=== PATIENT | male | born 1935 | race Caucasian/White ===

== ENCOUNTER 2018-10-15 10:44 | Emergency (ER) | payer MEDICARE ==
--- OUTSIDE RECORDS SUMMARY | 2018-10-15 10:53 | XMS REPORT | Continuity of Care Document ---
:1935 External Reference #:[id number] Author Name Jose Roberto Richey DO Address [address] [place] [address] Care Team Providers Name Role Phone Leonila Siu NP Care Team Information Wearing Apparel Presser Unavailable Jaime Pillai MD Primary Care Physician Unavailable Payers Date Identification Numbers Payment Provider Subscriber Policy Number: [id number] Medicare Ten Mccullough PayID: [id number] [facility] [address] [place] [address] Policy Number: [id number] [facility] Health Care Option Ten Mccullough PayID: [id number] Claims, [address] [place] [address] Advance Directives Description No Information Available Problems Date Description Provider Status Onset: 11/10/1996 Atrial fibrillation Levi Nunez MD Active Note: on warfarin (timed since move to [place]) and never any thrombo embolic events; Onset: 11/10/2001 Essential hypertension Levi Nunez MD Active Onset: 11/16/1996 Anticoagulants Care Home (Current) Use Levi Nunez MD Active Encounter Note: had subdural hematoma with INR of 3.5 (and strained to unhook heavy RV ) and off warfarin for 3 weeks after his craniotomy here in [place] ([employer]) Onset: 11/04/2012 Diverticular disease of colon Levi Nunez MD Active Onset: 11/08/2003 Malignant tumor of urinary bladder Levi Nunez MD Active Note: cystoscopic treatment 2003 and 2011 Onset: 01/23/2007 Subdural hemorrhage Levi Nunez MD Active Note: Pt states he had picked up the tongue of an RV - had craniotomy; cannot recall how long off warfarin Onset: 09/21/2018 Long-term current use of anticoagulant Jose Roberto Richey DO Active Onset: 09/21/2018 Chronic atrial fibrillation Jose Roberto Richey DO Active Family History Description No Information Available Social History Type Date Description Comments Sex Unknown Tobacco Use Start: Unknown End: Unknown Patient is a former smoker Smoking Status Reviewed: 09/21/18 Patient is a former smoker Allergies, Adverse Reactions, Alerts Date Description Reaction Status Severity Comments 11/04/2012 Diltiazem Active Medications Medication Date Status Form Strength Qnty SIG Indications Ordering Provider Metoprolol 11/06/ Active Tablets 25mg 60tabs 1 po bid Levi Barraza Tartrate 2009 MD Enrique Warfarin 11/14/ Active Tablets 2mg alternates Levi Barraza Sodium 2004 2 mg's with Enrique 1 mg's qod Pravastatin / Active Tablets 20mg Unknown Sodium 0000 Verapamil HCL / Active Tablets ER 120mg Unknown ER 0000 Myrbetriq / Active Tablets ER 50mg Take 1 Unknown 0000 24HR Tablet By Mouth Every Day Mucinex DM / Active Tablets ER 30-600mg Unknown 0000 12HR Preservision / Active Capsules Unknown Areds 0000 Ipratropium / Active Solution 0.06% Unknown [place] 0000 Tylenol 8 Hour / Active Tablets ER 650mg 1 by mouth Unknown 0000 q4 hours as needed for pain Glucosamine / Active Capsules 1500Com Unknown Chondroitin 0000 1500 Complex Metamucil / Active Powder 28.3% Unknown 0000 Vitamin D3 / Active Capsules 1000Unit 2000 iu per Unknown 0000 day Aspirin Ec Low / Active Tablets DR 81mg Unknown Dose 0000 Ferrousul / Active Tablets 325(65Fe) 1 by mouth Unknown 0000 mg 3 times a week Colyte-Flavor 11/04/ Hx Solution 240gm 1units As directed V58.61 Levi Barraza [employer] 2013 - Rec Enrique 2012 Immunizations Description No Information Available Vital Signs Date Vital Result Comment 09/21/2018 11:32am Height 71.5 inches 5'11.50" Weight 209.00 lb BP Systolic 132 mmHg BP Diastolic 81 mmHg Heart Rate 61 /min BMI (Body Mass Index) 28.7 kg/m2 11/04/2012 1:41pm Height 71.5 inches 5'11.50" Weight 210.00 lb BP Systolic 114 mmHg BP Diastolic 64 mmHg Heart Rate 76 /min BMI (Body Mass Index) 28.9 kg/m2 Results Test Date Facility Test Result H/L Range Note Surgical [facility] [place] DATE: Pathology 3 12/03/ <SEE NOTE> Laboratory test [facility] Inr 3.0 finding 3 [address] [place] [address] [phone] CBC W/Auto [facility] White 8.7 3/UL 4.8- 10.8 Differential(!) 3 [address] [facility] [place] [address] Count Ser [phone] Auto CNT RBC Red Blood Count 4.51 X106/UL 4.20-6.20 Hemoglobin Blood 14.5 g/dL 12.0-18.0 Hematocrit 45.2 % 35-52 MCV (Corpuscular Volume) 100.2 FL High 79-97 MCH (Corpuscular Hemoglobin) 32.2 pg High 27-31 MCHC (Corpuscular Hemog Conc) 32.2 g/dL 32.0-36.0 RDW 14.0 % 10.5-15.0 Platelet Count Blood Auto CNT 162 X103/UL 150-450 MPV 8.1 FL 7.4-10.4 Lymph% 16.8 % Low 20.0-45.0 Cooke% 7.9 % 1.0-9.0 Neutrophil % 75.3 % 38.0-83.0 Absolute Lymphocytes 1.5 X103/UL 1.0-4.8 Absolute Monocytes 0.7 X103/UL 0.0-0.8 Absolute Neutrophils 6.6 X103/UL 1.5-7.7 Procedures Date Code Description Status 12/01/2012 21282 Colonoscopy W/ Snare RM Of Polyp/Tumor/Lesion Completed Encounters Type Date Location Provider Dx Diagnosis Office Visit 11/04/2012 Gastroenterology Levi Barraza V58.61 Anticoagulants Long 1:[facility] MD Term (Current) Use Encounter 427.31 Atrial Fibrillation 401.9 Hypertension Unspec 562.10 Diverticulosis Colon W/O Hemorrhage Plan of Treatment Future Appointment(s):10/22/2018 8:00 am - Jose Roberto Richey DO at [facility]09/21/2018 - Jose Roberto Richey, DOZ86.010 Personal history of colonic xeakscN74.9 Anemia, rhpvzlgndgdH42.2 Chronic atrial yvskhyhivooiV63.01 senior living (current) use of anticoagulants
--- NOTE | 2018-10-15 11:28 | UC ---
Knee Pain HPI - HPI Summary HPI Summary: 83 yo male presents with RIGHT knee pain. He tells me that 5 days ago he was kneeling down on a rug doing work at home. The next day developed right knee pain. Over the last 2 days the knee has become increasingly swollen, red, and warm to touch with increased pain. He is ambulatory without assistance. He has been applying an OTC bengay-like cream to his knee with no relief. Denies specific injury - History of Current Complaint Stated Complaint: KNEE INJURY Time Seen by Provider: 10/15/18 11:28 Hx Obtained From: Patient Onset/Duration: Gradual Onset Severity Initially: Moderate Severity Currently: Severe Pain Intensity: 10 Pain Scale Used: 0-10 Numeric - Allergies/Home Medications Allergies/Adverse Reactions: Allergies Allergy/AdvReac Type Severity Reaction Status Date / Time diltiazem [From Cardizem] Allergy Headache Verified 05/14/18 14:39 DUST Allergy MINOR Uncoded 11/29/16 11:57 PMH/Surg Hx/FS Hx/Imm Hx Endocrine History: Dyslipidemia Cardiovascular History: Cardiac Disease, Atrial Fibrillation, Other - Aortic valve replacement - Surgical History Surgical History: Yes Surgery Procedure, Year, and Place: PORT installed 1 1/2 years ago @ [facility]; Prostate removed 1996; colonoscopies 3X done at [facility]; Subdural hematoma 2005 @ [facility]; Heart Valve repair 2008 @ [facility]; Varicose Veins @ [place] 1960; 1969. Left Elbow bursa removed 1967 AORTIC VALVE REPLACED Jan 2015 - Family History Known Family History: Positive: Unknown - Social History Occupation: Retired Alcohol Use: Weekly Alcohol Amount: 2 PER WEEK Substance Use Type: None Smoking Status (MU): Former Smoker Amount Used/How Often: PACK A DAY Have You Smoked in the Last Year: No When Did the Patient Quit Smoking/Using Tobacco: 1974 - Immunization History Most Recent Tetanus Shot: 5 years ago Review of Systems All Other Systems Reviewed And Are Negative: Yes Constitutional: Positive: Negative Respiratory: Positive: Negative Cardiovascular: Positive: Negative Neurovascular: Positive: Negative Musculoskeletal: Positive: Other: - Right knee pain Neurological: Positive: Negative Psychological: Positive: Negative Physical Exam - Summary Physical Exam Summary: GENERAL: NAD. WDWN. No pain distress. SKIN: No rashes, sores, lesions, or open wounds. CHEST: No accessory muscle use. Breathing comfortably and in no distress. CV: . Pulses intact popliteal, PT, and DP. Cap refill <2seconds MSK: RIGHT KNEE: TTP about anterior aspect with moderate edema and erythema at site. Mildly warm to touch. Flexion increases pain and unable to flex >90deg due to pain and edema. NEURO: Alert. Sensations intact and symmetric B/L LEs PSYCH: Age appropriate behavior. Triage Information Reviewed: Yes Vital Signs: Vital Signs: Temp Pulse Resp BP Pulse Ox 97.7 F 67 16 132/67 98 10/15/18 11:26 10/15/18 11:26 10/15/18 11:26 10/15/18 11:10/15/18 11:26 Vital Signs Reviewed: Yes Knee Pain Course/Dx - Course Course Of Treatment: XR: IMPRESSION: 1. SOFT TISSUE SWELLING ANTERIOR TO THE PATELLA AND PATELLAR TENDON. 2. CHONDROCALCINOSIS AND MILD TO MODERATE OSTEOARTHRITIC CHANGE. Suspect bursitis. Given the progressing edema, erythema, and pain with decreased ROM - there is a concern this resembles early septic bursitis. Given his significant comorbidities and PMHx, I am hesitant to try him with outpatient anbx without proper follow up; therefore I called Orthopedics and Dr. Lu will see pt an hour from now for evaluation. Discussed this with pt and he is agreeable to this. - Differential Dx/Diagnosis Provider Diagnosis: Bursitis of right knee Discharge - Sign-Out/Discharge Documenting (check all that apply): Patient Departure All imaging exams completed and their final reports reviewed: Yes - Discharge Plan Condition: Stable Disposition: HOME Referrals: Jaime Pillai MD [Primary Care Provider] - Adan Lu MD [Medical Doctor] - 10/15/18 1:45 pm Additional Instructions: If you develop a fever, shortness of breath, chest pain, new or worsening symptoms - please call your PCP or go to the ED. Please go to Dr. Lu's office at 1:45pm today - they will further evaluate your knee. - Billing Disposition and Condition Condition: STABLE Disposition: Home
[2018-10-15 11:30] VITALS: BP 132/67
== END 2018-10-15 13:03 | disposition home or self-care (01) ==
LOC: UCEAST 10:44
DX: M70.51 Other bursitis of knee, right knee (principal); M11.261 Other chondrocalcinosis, right knee; M17.11 Unilateral primary osteoarthritis, right knee; E78.5 Hyperlipidemia, unspecified; I48.91 Unspecified atrial fibrillation; Z95.2 Presence of prosthetic heart valve; Z88.8 Allergy status to other drugs, medicaments and biological substances; Z87.891 Personal history of nicotine dependence
CPT/HCPCS: 99211; G0463

== ENCOUNTER 2018-10-20 11:57 | Inpatient (IN) | payer MEDICARE ==
[2018-10-20] MEDS ORDERED: Acetaminophen TAB* 325 MG PO PRN (15:06)
[2018-10-20] MEDS ORDERED: Piperacillin/Tazobac ADVAN(*) 3.375 GM in NS 0.9% 100 ML* 100 ML IVPB ONE (15:12)
[2018-10-20] MEDS ORDERED: NS 0.9% 1000 ML** 1,000 ML IV SCH (15:15)
[2018-10-20] MEDS ORDERED: Zosyn per Pharmacy* NOTE FOLLOW UP SCH (16:00)
[2018-10-20 16:03] LABS: INR 4.13 (0.82-1.09)
[2018-10-20 16:04] LABS: Albumin 4.1 g/dL (3.2-5.2); Calcium 9.6 mg/dL (8.6-10.3); Potassium 4.5 mmol/L (3.5-5.0); Total Bilirubin 0.9 mg/dL (0.2-1.0)
[2018-10-20 16:17] LABS: BUN/Creatinine Ratio 25.8 (8-20); EGFR African American 89.2 (>60); EGFR Non-African American 73.7 (>60)
[2018-10-20 16:46] LABS: Albumin/Globulin Ratio 1.2 (1-3); Globulin 3.3 g/dL (2-4); Total Protein 7.4 g/dL (6.4-8.9)
[2018-10-20 16:49] LABS: ABS Basophils 0 10^3/ul (0-0.2); ABS Eosinophils 0 10^3/ul (0-0.6); ABS Lymphocytes 0.6 10^3/ul (1.0-4.8); ABS Monocytes 0.8 10^3/ul (0-0.8); ABS Neutrophils 5.8 10^3/ul (1.5-7.7); ABS Nucleated RBC 0 10^3/ul; Eosinophil % 0.2 %; Hematocrit 35 % (36-46); Hemoglobin 11.6 g/dL (14.0-18.0); Lymphocyte % 8.2 %; Mean Corpuscular HGB Conc 33 g/dL (31-36); Mean Corpuscular Hemoglobin 33 pg (27-31); Mean Corpuscular Volume 100 fL (80-94); Mean Platelet Volume 7.6 fL (7.4-10.4); Nucleated Red Blood Cells % 0.1; Platelet Count 250 10^3/uL (150-450); Red Blood Count 3.49 10^6 /uL (4.18-5.48); Red Cell Distribution Width 14 % (10.5-15); White Blood Count 7.3 10^3/uL (3.5-10.8)
[2018-10-20] MEDS ORDERED: Warfarin TAB(*) 5 MG PO SCH (17:00)
[2018-10-20] MEDS: Acetaminophen TAB* 325 MG PO PRN (19:36)
[2018-10-20] MEDS: ZOSYN 3.375 GM Q8H per EXTENDED INFUSION IVPB SCH ×2 (19:37)
--- NOTE | 2018-10-20 19:54 | HP ---
CC: Dr. Pillai; Dr. Pacheco; Dr. Lu * HISTORY AND PHYSICAL: DATE OF ADMISSION: 10/20/18 PRIMARY CARE PROVIDER: Dr. Pillai. CHIEF COMPLAINT: Sent from Dr. Lu's office for admission due to prepatellar bursitis. HISTORY OF PRESENT ILLNESS: Mr. Mccullough is an 83-year-old male, who was diagnosed with right knee cellulitis by Dr. Lu a week ago. He was placed on Bactrim and since then he has been doing somewhat alright, but noted that his right leg continued to be painful. He has had problems with walking and when he was seen by Dr. Lu for a followup today, she did not see a drastic change or improvement while on antibiotics. Due to that, she directed the patient for direct admission to the hospitalist service with diagnosed prepatellar bursitis. The patient denies any fevers. He stated that he had been ambulating without any support but it had been more difficult recently. In addition to the above mentioned, the patient stated that 3 weeks ago, he had a prolonged dentist visit when he had some teeth repair and local antibiotic treatment on the right bottom teeth and molars. During that time, he developed hematoma on his buttocks and bilateral posterior thigh that was likely in conjunction with the patient being on Coumadin and prolonged immobility. He stated that his hematoma had been improving, but he developed right knee cellulitis approximately 1 week prior to current admission. PAST MEDICAL HISTORY: Includes: 1. Prostate cancer, status post chemotherapy. The patient has a right subclavian PowerPort inserted. 2. History of chronic atrial fibrillation, on anticoagulation with Coumadin. 3. History of DVT in 2012 after his prostatectomy for prostate cancer. 4. History of dyslipidemia. 5. History of thoracic neuritis. 6. History of lumbar stenosis. 7. Restless legs syndrome. 8. Hypertension. 9. History of severe mitral regurgitation, status post mitral valve repair and annuloplasty performed as well as maze procedure performed in 2009. 10. History of aortic valve replacement with bioprosthetic valve in 2014. 11. History of macular degeneration. 12. Subdural hematoma in 2006, status post drainage. MEDICATIONS: At home, include: 1. Mag-Ox 1 tablet daily 400 mg. 2. PreserVision soft gels 1 tablet b.i.d. 3. Pravachol 20 mg daily. 4. Mirabegron 50 mg daily. 5. Mucinex DM 1 tablet on a p.r.n. basis. 6. Acetaminophen on a p.r.n. basis. 7. Verapamil 120 mg b.i.d. 8. Ferrous gluconate 325 mg daily. 9. Coumadin 5 mg a day. 10. Metoprolol tartrate 25 mg b.i.d. 11. Metamucil 2 packets daily. 12. Glucosamine 1500 mg b.i.d. 13. Vitamin D3 1000 units daily. 14. Aspirin 81 mg daily. ALLERGIES: DILTIAZEM. FAMILY HISTORY: Positive for father with history of pancreatitis who at the age of 80. Mother who of old age at the age of 94. SOCIAL HISTORY: The patient has a history of 25 pack-year smoking and he quit in 1974. He lives alone. There is no history of alcohol or drug use. His surrogate is his daughter, Narcisa, with phone number of [phone]. The patient is a full code. REVIEW OF SYSTEMS: Please see history of present illness. All the remaining 12 systems were reviewed with the patient and were otherwise negative. PHYSICAL EXAMINATION GENERAL: The patient is a pleasant 83-year-old male, who is in no acute distress. Alert, awake, oriented x3. VITAL SIGNS: Blood pressure of 137/73, heart rate of 69 and regular, respiratory rate 20, oxygen saturation 98% on room air, temperature 97.5. HEENT: Head: Atraumatic, normocephalic. Eyes: Pupils are equal and reactive to light and accommodation. Oropharynx clear. Mucosa moist. NECK: Supple. No JVD. No bruits bilaterally. RESPIRATORY: Clear to auscultation bilaterally. CARDIOVASCULAR: Irregular rate and rhythm. No murmur. ABDOMEN: Soft, nontender. Bowel sounds are present in all 4 quadrants. EXTREMITIES: There is +1 pitting pedal edema of the right calf and right ankle as well as right knee. There is no edema of the left leg. There is no clubbing , or cyanosis, peripheral. The knee is mildly tender to touch. The patient has reasonable range of motion and he is able to bare weight on the right knee. He has problems with flexion of more than 45% degrees. His extension is intact. NEUROLOGIC: On neuro evaluation, speech is clear. Cranial nerves II through XII grossly intact. Motor strength is 5/5 bilaterally. PSYCHIATRIC: On psychiatric evaluation, alert and oriented x3 with no evidence of anxiety or depression. SKIN: On evaluation of the skin, the patient has swollen right knee with notable prepatellar fluid collection. He has erythema that does not appear to be spreading beyond the outlined area of cellulitis that was performed within the past several days. On further evaluation of the patient's skin, the patient has resolving ecchymotic area of bilateral buttocks and hematoma of the left posterior thigh. DIAGNOSTIC STUDIES/LAB DATA: None obtained so far. ASSESSMENT AND PLAN: 1. Prepatellar bursitis. The patient is going to be placed on treatment with Zosyn. Blood cultures are going to be obtained. Due to the right leg edema, we will also obtain Dopplers to evaluate for deep venous thrombosis. 2. The patient has chronic atrial fibrillation, which currently appears to be rate controlled. I will continue his outpatient verapamil. He is also on Coumadin and daily INRs are going to be checked. 3. The patient has history of hypertension and he is on verapamil as well as metoprolol. 4. For DVT prophylaxis, the patient is anticoagulated with Coumadin and his INR going to be checked to make sure this is therapeutic. 5. Please also note that Dr. Lu will follow from orthopedic service for prepatellar bursitis as mentioned above. 6. The patient's code status is full and his surrogate is his daughter, Narcisa. TIME SPENT: Approximately 65 minutes was spent on the admission of this patient , more than half the time was spent [id number] with the patient during the interview and physical exam. [id number]/[facility] #: [id number] NIEVES
[2018-10-20] MEDS: Docusate CAP* 100 MG PO PRN (20:05)
[2018-10-20] MEDS: Metoprolol Tartrate TAB* 25 MG PO SCH (20:05)
[2018-10-20] MEDS: Verapamil TAB* 120 MG PO SCH (20:05)
[2018-10-20] MEDS: PTO:Multivitamins/Mins (NF) AREDS2 1 CAP CAP PO SCH (20:46)
[2018-10-21] MEDS: Acetaminophen TAB* 325 MG PO PRN ×3 (04:02→22:29)
[2018-10-21] MEDS: ZOSYN 3.375 GM Q8H per EXTENDED INFUSION IVPB SCH ×6 (04:12→21:16)
[2018-10-21 04:23] LABS: ABS Basophils 0 10^3/ul (0-0.2); ABS Eosinophils 0 10^3/ul (0-0.6); ABS Lymphocytes 0.6 10^3/ul (1.0-4.8); ABS Monocytes 0.7 10^3/ul (0-0.8); ABS Neutrophils 4.2 10^3/ul (1.5-7.7); ABS Nucleated RBC 0 10^3/ul; Eosinophil % 0.7 %; Hematocrit 32 % (36-46); Lymphocyte % 10.1 %; Mean Corpuscular HGB Conc 34 g/dL (31-36); Mean Corpuscular Hemoglobin 34 pg (27-31); Mean Corpuscular Volume 101 fL (80-94); Mean Platelet Volume 7.2 fL (7.4-10.4); Nucleated Red Blood Cells % 0; Platelet Count 217 10^3/uL (150-450); Red Blood Count 3.21 10^6 /uL (4.18-5.48); Red Cell Distribution Width 14 % (10.5-15); White Blood Count 5.6 10^3/uL (3.5-10.8)
[2018-10-21 04:26] LABS: INR 4.55 (0.82-1.09)
[2018-10-21 04:38] LABS: BUN/Creatinine Ratio 26.1 (8-20); EGFR African American 94.8 (>60); EGFR Non-African American 78.4 (>60); Potassium 4.7 mmol/L (3.5-5.0)
[2018-10-21] MEDS ORDERED: NS 0.9% 1000 ML** 1,000 ML IV SCH (07:45)
--- NOTE | 2018-10-21 09:56 | PN ---
Progress Note - Progress Note Date of Service: 10/21/18 Note: Pt seen and examined. Briefly, pt was initially seen in my office last week with infected prepatellar bursitis. We treated conservatively and he returned to clinic yesterday with no change in bursitis but increasing cellulitis. Spoke with medicine team who agreed to admit patient for IV abx. Today, patient feels the same in terms of pain. He is able the mobilize well. Denies SOB, CP, fevers or chills. Temp Pulse Resp BP Pulse Ox 97.7 F 77 18 133/78 97 10/21/18 07:43 10/21/18 07:43 10/21/18 08:00 10/21/18 07:43 10/21/18 07:43 NAD. AAOx3. resting comfortably in chair. RLE: skin intact, erythema is decreasing somewhat tender although improved, not as red as yesterday and decreasing from markings yesterday. able to flex/ext ankle. ROM of knee 3-95 degrees. calf soft and nontender. SILT grossly distally. brisk cap refill. Laboratory Results - last 24 hr 10/20/18 10/20/18 10/20/18 15:38 15:38 15:38 WBC 7.3 RBC 3.49 L Hgb 11.6 L Hct 35 L MCV 100 H MCH 33 H MCHC 33 RDW 14 Plt Count 250 MPV 7.6 Neut % (Auto) 80.0 Lymph % (Auto) 8.2 Mora % (Auto) 11.3 Eos % (Auto) 0.2 Baso % (Auto) 0.3 Absolute Neuts (auto) 5.8 Absolute Lymphs (auto) 0.6 L Absolute Monos (auto) 0.8 Absolute Eos (auto) 0 Absolute Basos (auto) 0 Absolute Nucleated RBC 0 Nucleated RBC % 0.1 INR (Anticoag Therapy) 4.13 H Sodium 131 L Potassium 4.5 Chloride 100 L Carbon Dioxide 24 Anion Gap 7 BUN 25 H Creatinine 0.97 Est GFR ( Amer) 89.2 Est GFR (Non-Af Amer) 73.7 BUN/Creatinine Ratio 25.8 H Glucose 108 H Calcium 9.6 Total Bilirubin 0.90 AST 32 ALT 29 Alkaline Phosphatase 162 H Total Protein 7.4 Albumin 4.1 Globulin 3.3 Albumin/Globulin Ratio 1.2 10/21/18 10/21/18 10/21/18 04:00 04:00 04:00 WBC 5.6 RBC 3.21 L Hgb 11.0 L Hct 32 L MCV 101 H MCH 34 H MCHC 34 RDW 14 Plt Count 217 MPV 7.2 L Neut % (Auto) 76.3 Lymph % (Auto) 10.1 Mora % (Auto) 12.3 Eos % (Auto) 0.7 Baso % (Auto) 0.6 Absolute Neuts (auto) 4.2 Absolute Lymphs (auto) 0.6 L Absolute Monos (auto) 0.7 Absolute Eos (auto) 0 Absolute Basos (auto) 0 Absolute Nucleated RBC 0 Nucleated RBC % 0 INR (Anticoag Therapy) 4.55 H Sodium 133 L Potassium 4.7 Chloride 104 Carbon Dioxide 25 Anion Gap 4 BUN 24 Creatinine 0.92 Est GFR ( Amer) 94.8 Est GFR (Non-Af Amer) 78.4 BUN/Creatinine Ratio 26.1 H Glucose 95 Calcium 9.0 Total Bilirubin AST ALT Alkaline Phosphatase Total Protein Albumin Globulin Albumin/Globulin Ratio A/P 83 yo M with infected prepatellar bursitis and surrounding cellulitis diet as tolerated cont abx WBAT and ROM as tolerated. no plans for surgery. will follow along
[2018-10-21] MEDS: Magnesium Oxide TAB* 400 MG PO SCH (10:47)
[2018-10-21] MEDS: Cholecalciferol TAB* 1000 UNITS PO SCH (10:47)
[2018-10-21] MEDS: Aspirin EC TAB* 81 MG TAB.EC PO SCH (10:47)
[2018-10-21] MEDS: Metoprolol Tartrate TAB* 25 MG PO SCH ×2 (10:49→21:16)
[2018-10-21] MEDS: Verapamil TAB* 120 MG PO SCH ×2 (10:49→21:15)
[2018-10-21] MEDS: PTO:Multivitamins/Mins (NF) AREDS2 1 CAP CAP PO SCH ×2 (10:49→21:17)
[2018-10-21] MEDS: Psyllium PAK PO SCH (10:50)
[2018-10-21] MEDS: Ferrous Gluconate TAB* 324 MG TAB PO SCH (10:55)
--- NOTE | 2018-10-21 12:57 | PN ---
Subjective Date of Service: 10/21/18 Interval History: pt's knee is less swollen and painful Objective Active Medications: Acetaminophen (Tylenol Tab*) 650 mg PO Q8H PRN PRN Reason: PAIN Last Admin: 10/21/18 04:02 Dose: 650 mg Aspirin (Aspirin Ec Tab*) 81 mg PO DAILY COUNTS INCLUDE 234 BEDS AT THE [facility] Last Admin: 10/21/18 10:47 Dose: 81 mg Cholecalciferol (Vitamin D Tab*) 1,000 units PO DAILY COUNTS INCLUDE 234 BEDS AT THE [facility] Last Admin: 10/21/18 10:47 Dose: 1,000 units Docusate Sodium (Colace Cap*) 100 mg PO BID PRN PRN Reason: CONSTIPATION Last Admin: 10/20/18 20:05 Dose: 100 mg Ferrous Gluconate (Fergon Tab*) 324 mg PO DAILY COUNTS INCLUDE 234 BEDS AT THE [facility] Last Admin: 10/21/18 10:55 Dose: 324 mg Heparin Sodium (Porcine) (Heparin Flush Port (Ivad)) 5 ml FLUSH DAILY COUNTS INCLUDE 234 BEDS AT THE [facility]; Protocol Last Admin: 10/21/18 10:55 Dose: 5 ml Piperacillin Sod/Tazobactam (Sod 3.375 gm/ Sodium Chloride) 100 mls @ 25 mls/ hr IVPB Q8H COUNTS INCLUDE 234 BEDS AT THE [facility] Last Admin: 10/21/18 12:10 Dose: 25 mls/hr Sodium Chloride (Ns 0.9% 1000 Ml) 1,000 mls @ 75 mls/hr IV PER RATE COUNTS INCLUDE 234 BEDS AT THE [facility] Stop: 10/21/18 21:04 Last Admin: 10/21/18 11:34 Dose: 75 mls/hr Magnesium Oxide (Magox 400 Tab*) 400 mg PO DAILY COUNTS INCLUDE 234 BEDS AT THE [facility] Last Admin: 10/21/18 10:47 Dose: 400 mg Metoprolol Tartrate (Lopressor Tab*) 25 mg PO BID COUNTS INCLUDE 234 BEDS AT THE [facility] Last Admin: 10/21/18 10:49 Dose: 25 mg Multivitamins/Minerals (Preservision Areds 2) 1 cap PO BID COUNTS INCLUDE 234 BEDS AT THE [facility] Last Admin: 10/21/18 10:49 Dose: 1 cap Pharmacy Consult (Zosyn Per Pharmacy*) 1 note FOLLOW UP .ZOSYN PER PHARMACY COUNTS INCLUDE 234 BEDS AT THE [facility] Psyllium Hydrophilic Mucilloid (Metamucil Enmnauel*) 2 pkt PO DAILY COUNTS INCLUDE 234 BEDS AT THE [facility] Last Admin: 10/21/18 10:50 Dose: 2 pkt Verapamil HCl (Calan Tab*) 120 mg PO BID COUNTS INCLUDE 234 BEDS AT THE [facility] Last Admin: 10/21/18 10:49 Dose: 120 mg Vital Signs - 8 hr 10/21/18 10/21/18 10/21/18 07:43 08:00 11:20 Temperature 97.7 F 97.3 F Pulse Rate 77 80 Respiratory 18 16 18 Rate Blood Pressure 133/78 148/82 (mmHg) O2 Sat by Pulse 97 100 Oximetry Oxygen Devices in Use Now: None Appearance: 83 yo M in nAD, AAOx3 Eyes: No Scleral Icterus, PERRLA Ears/Nose/Mouth/Throat: NL Teeth, Lips, Gums, Mucous Membranes Moist Neck: NL Appearance and Movements; NL JVP, Trachea Midline Respiratory: Symmetrical Chest Expansion and Respiratory Effort, Clear to Auscultation Cardiovascular: - - irregular Abdominal: NL Sounds; No Tenderness; No Distention, No Hepatosplenomegaly Lymphatic: No Cervical Adenopathy Extremities: No Clubbing, Cyanosis, - - R calf, leg edema with knee effusioion Skin: No Nodules or Sclerosis, - - R knee cellulitis appears to be improving Neurological: Alert and Oriented x 3, - - limit of flexion of R knee to 50 degrees Result Diagrams: 10/21/18 04:00 10/21/18 04:00 Assess/Plan/Problems-Billing Assessment: 83 yo M with h/o MVR, aortic replacement, HTN, chronic A. fib with prepatellar bursitis - Patient Problems (1) Prepatellar bursitis Comment: cont Zosyn, asked for PT improving slowly (2) Atrial fibrillation Comment: chronic , controlled on Verapamil (3) Hypertension Comment: controlled (4) DVT (deep venous thrombosis) Comment: chronic, partial of R femoral vein cont Coumadin,-held for high INR today Status and Disposition: inpatient
[2018-10-21] MEDS ORDERED: Polyethylene Glycol 3350* 17 GM PACKET PO PRN (21:43)
[2018-10-22] MEDS: ZOSYN 3.375 GM Q8H per EXTENDED INFUSION IVPB SCH ×6 (04:13→21:14)
[2018-10-22 04:47] LABS: INR 3.81 (0.82-1.09)
[2018-10-22] MEDS: Magnesium Oxide TAB* 400 MG PO SCH (10:17)
[2018-10-22] MEDS: Metoprolol Tartrate TAB* 25 MG PO SCH ×2 (10:17→21:14)
[2018-10-22] MEDS: Ferrous Gluconate TAB* 324 MG TAB PO SCH (10:17)
[2018-10-22] MEDS: Aspirin EC TAB* 81 MG TAB.EC PO SCH (10:17)
[2018-10-22] MEDS: Psyllium PAK PO SCH (10:17)
[2018-10-22] MEDS: Cholecalciferol TAB* 1000 UNITS PO SCH (10:17)
[2018-10-22] MEDS: Verapamil TAB* 120 MG PO SCH ×2 (10:17→21:14)
[2018-10-22] MEDS: PTO:Multivitamins/Mins (NF) AREDS2 1 CAP CAP PO SCH ×3 (10:26→21:14)
[2018-10-22] MEDS: Acetaminophen TAB* 325 MG PO PRN ×2 (13:10→23:10)
--- NOTE | 2018-10-22 14:00 | PN ---
Subjective Date of Service: 10/22/18 Interval History: Pt feels well, ambulation without support. R knee still swollen and had a small amount of drainage on the bed sheets last night Objective Active Medications: Acetaminophen (Tylenol Tab*) 650 mg PO Q8H PRN PRN Reason: PAIN Last Admin: 10/22/18 13:10 Dose: 650 mg Aspirin (Aspirin Ec Tab*) 81 mg PO DAILY [facility] Last Admin: 10/22/18 10:17 Dose: 81 mg Cholecalciferol (Vitamin D Tab*) 1,000 units PO DAILY [facility] Last Admin: 10/22/18 10:17 Dose: 1,000 units Docusate Sodium (Colace Cap*) 100 mg PO BID PRN PRN Reason: CONSTIPATION Last Admin: 10/20/18 20:05 Dose: 100 mg Ferrous Gluconate (Fergon Tab*) 324 mg PO DAILY [facility] Last Admin: 10/22/18 10:17 Dose: 324 mg Heparin Sodium (Porcine) (Heparin Flush Port (Ivad)) 5 ml FLUSH DAILY [facility]; Protocol Last Admin: 10/22/18 09:58 Dose: 5 ml Piperacillin Sod/Tazobactam (Sod 3.375 gm/ Sodium Chloride) 100 mls @ 25 mls/ hr IVPB Q8H [facility] Last Admin: 10/22/18 13:01 Dose: 25 mls/hr Magnesium Oxide (Magox 400 Tab*) 400 mg PO DAILY [facility] Last Admin: 10/22/18 10:17 Dose: 400 mg Metoprolol Tartrate (Lopressor Tab*) 25 mg PO BID [facility] Last Admin: 10/22/18 10:17 Dose: 25 mg Multivitamins/Minerals (Preservision Areds 2) 1 cap PO BID [facility] Last Admin: 10/22/18 10:57 Dose: 1 cap Pharmacy Consult (Zosyn Per Pharmacy*) 1 note FOLLOW UP .ZOSYN PER PHARMACY [facility] Polyethylene Glycol/Electrolytes (Miralax*) 17 gm PO DAILY PRN PRN Reason: CONSTIPATION Psyllium Hydrophilic Mucilloid (Metamucil Enmanuel*) 2 pkt PO DAILY [facility] Last Admin: 10/22/18 10:17 Dose: 2 pkt Verapamil HCl (Calan Tab*) 120 mg PO BID [facility] Last Admin: 10/22/18 10:17 Dose: 120 mg Vital Signs - 8 hr 10/22/18 10/22/18 10/22/18 07:29 08:00 11:13 Temperature 98.3 F 98.2 F Pulse Rate 85 67 Respiratory 18 18 Rate Blood Pressure 162/81 112/60 (mmHg) O2 Sat by Pulse 97 99 Oximetry Oxygen Devices in Use Now: None Appearance: 83 yo M in nAD, aAOx3 Eyes: No Scleral Icterus, PERRLA Ears/Nose/Mouth/Throat: NL Teeth, Lips, Gums, Mucous Membranes Moist Neck: NL Appearance and Movements; NL JVP, Trachea Midline Respiratory: Symmetrical Chest Expansion and Respiratory Effort, Clear to Auscultation Cardiovascular: NL Sounds; No Murmurs; No JVD, - - irregular Abdominal: NL Sounds; No Tenderness; No Distention Lymphatic: No Cervical Adenopathy Extremities: No Clubbing, Cyanosis, - - R knee edema appears the same, erythema is paller, at the bottom of patella there appears to be subcuteneus collection of small amount of purulent material, not draining Skin: No Nodules or Sclerosis Neurological: Alert and Oriented x 3, NL Muscle Strength and Tone Result Diagrams: 10/21/18 04:00 10/21/18 04:00 Microbiology and Other Data: Microbiology 10/20/18 15:38 Aerobic Blood Culture - Preliminary Blood Venous No Growth Day 1 Anaerobic Blood Culture - Preliminary No Growth Day 1 Assess/Plan/Problems-Billing Assessment: 83 yo M with h/o MVR, aortic replacement, HTN, chronic A. fib with prepatellar bursitis - Patient Problems (1) Prepatellar bursitis Comment: cont Zosyn, improving , but appears that it may start draining soon. Awaiting Dr. Lu's evaluation, informed pt that discharge depends on if ortho service agrees (2) Atrial fibrillation Comment: chronic , controlled on Verapamil (3) Hypertension Comment: controlled (4) DVT (deep venous thrombosis) Comment: chronic, partial of R femoral vein cont Coumadin,-held for high INR today Status and Disposition: inpatient
--- NOTE | 2018-10-22 15:55 | PN ---
Progress Note - Progress Note Date of Service: 10/22/18 SOAP: Subjective: []Pt seen at bedside. He feels well though reports his right knee may be more swollen, he does feel the redness has improved. Denies fever, chills, CP, SOB Objective: []General: Pt seen at bedside. NAD RLE: Skin is intact, erythema over the the patella within markings. Anteriorly there is a quarter sized area that is fluctuant. Able to flex and extend 5-95. Calves supple and nontender without erythema, edema or palpable cords Assessment: []Prepatellar bursitis Plan: []WBAT PT/OT Cont zosyn Dr Aly silver eval pt tonight Vital Signs Temp 98.0 F 10/22/18 14:13 Pulse 66 10/22/18 14:13 Resp 20 10/22/18 14:13 BP 105/53 10/22/18 14:13 Pulse Ox 100 10/22/18 14:13 Intake & Output 10/21/18 10/22/18 10/22/18 18:59 06:59 18:59 Intake Total 600 480 840 Output Total 0 Balance 600 480 840 Intake: Oral 600 480 840 Output: Urine 0 Other: Estimated Void Medium # Bowel Movements 0 # Voids 1 Laboratory Last Values WBC 5.6 10^3/uL (3.5-10.8) 10/21/18 04:00 RBC 3.21 10^6 /uL (4.18-5.48) L 10/21/18 04:00 Hgb 11.0 g/dL (14.0-18.0) L 10/21/18 04:00 Hct 32 % (36-46) L 10/21/18 04:00 MCV 101 fL (80-94) H 10/21/18 04:00 MCH 34 pg (27-31) H 10/21/18 04:00 MCHC 34 g/dL (31-36) 10/21/18 04:00 RDW 14 % (10.5-15) 10/21/18 04:00 Plt Count 217 10^3/uL (150-450) 10/21/18 04:00 MPV 7.2 fL (7.4-10.4) L 10/21/18 04:00 Neut % (Auto) 76.3 % 10/21/18 04:00 Lymph % (Auto) 10.1 % 10/21/18 04:00 Real % (Auto) 12.3 % 10/21/18 04:00 Eos % (Auto) 0.7 % 10/21/18 04:00 Baso % (Auto) 0.6 % 10/21/18 04:00 Absolute Neuts (auto) 4.2 10^3/ul (1.5-7.7) 10/21/18 04:00 Absolute Lymphs (auto) 0.6 10^3/ul (1.0-4.8) L 10/21/18 04:00 Absolute Monos (auto) 0.7 10^3/ul (0-0.8) 10/21/18 04:00 Absolute Eos (auto) 0 10^3/ul (0-0.6) 10/21/18 04:00 Absolute Basos (auto) 0 10^3/ul (0-0.2) 10/21/18 04:00 Absolute Nucleated RBC 0 10^3/ul 10/21/18 04:00 Nucleated RBC % 0 10/21/18 04:00 INR (Anticoag Therapy) 3.81 (0.82-1.09) H 10/22/18 04:30 Sodium 133 mmol/L (135-145) L 10/21/18 04:00 Potassium 4.7 mmol/L (3.5-5.0) 10/21/18 04:00 Chloride 104 mmol/L (101-111) 10/21/18 04:00 Carbon Dioxide 25 mmol/L (22-32) 10/21/18 04:00 Anion Gap 4 mmol/L (2-11) 10/21/18 04:00 BUN 24 mg/dL (6-24) 10/21/18 04:00 Creatinine 0.92 mg/dL (0.67-1.17) 10/21/18 04:00 Est GFR ( Amer) 94.8 (>60) 10/21/18 04:00 Est GFR (Non-Af Amer) 78.4 (>60) 10/21/18 04:00 BUN/Creatinine Ratio 26.1 (8-20) H 10/21/18 04:00 Glucose 95 mg/dL (70-100) 10/21/18 04:00 Calcium 9.0 mg/dL (8.6-10.3) 10/21/18 04:00 Total Bilirubin 0.90 mg/dL (0.2-1.0) 10/20/18 15:38 AST 32 U/L (13-39) 10/20/18 15:38 ALT 29 U/L (7-52) 10/20/18 15:38 Alkaline Phosphatase 162 U/L (34-104) H 10/20/18 15:38 Total Protein 7.4 g/dL (6.4-8.9) 10/20/18 15:38 Albumin 4.1 g/dL (3.2-5.2) 10/20/18 15:38 Globulin 3.3 g/dL (2-4) 10/20/18 15:38 Albumin/Globulin Ratio 1.2 (1-3) 10/20/18 15:38
[2018-10-22] MEDS: Docusate CAP* 100 MG PO PRN (16:40)
--- NOTE | 2018-10-22 20:40 | PN ---
Progress Note - Progress Note Date of Service: 10/22/18 Note: Pt seen and examined around 5 pm. He is doing better with respect to pain and redness but has noted more discomfort after walking around. Denies fevers or chills. No chest pain. Small area of fluctuance collecting Temp Pulse Resp BP Pulse Ox 96.9 F 79 22 149/73 99 10/22/18 19:34 10/22/18 19:34 10/22/18 19:34 10/22/18 19:34 10/22/18 19:34 NAD. pleasant mood and normal affect. able to flex.ext knee. erythema decreasing. small superficial fluctuance noted. edema in leg distally. brisk cap refill A/P 83 to M with prepatellar bursitis and cellulitis responding to zosyn superficial area coming to ahead will eval in AM and likely aspirate to allow for draining. will need to be seen in my office next week
[2018-10-23] MEDS: ZOSYN 3.375 GM Q8H per EXTENDED INFUSION IVPB SCH ×2 (04:11)
[2018-10-23 06:12] LABS: INR 3.25 (0.82-1.09)
--- NOTE | 2018-10-23 06:53 | PN ---
Progress Note - Progress Note Date of Service: 10/23/18 Note: Pt seen and examined. Planned to aspirate area but area erupted. Pt feeling ok. mild serous drainage some purulence at the actual eruption Temp Pulse Resp BP Pulse Ox 97.7 F 68 18 143/64 95 10/23/18 03:24 10/23/18 03:24 10/23/18 03:24 10/23/18 03:24 10/23/18 03:24 NAD. pleasant. RLE: skin with small area of drainage but fluid now appears serous not israel pus. erythema decreasing. able to flex/ext knee. SILT grossly. brisk cap refill A/P 83 yo M with cellulitis and prepatellar bursitis wound draining continue ABX. will need to be seen by Dr Joseph Friday in office for wound check. dry dressing with extra dressing to change instructed patient to keep it washed with soap and water. no peroxide or neosporin pt can be discharge home per my standpoint
[2018-10-23] MEDS ORDERED: Magnesium CITRATE* 300 ML BTL PO ONE (08:05)
[2018-10-23 08:06] VITALS: BP 151/83
[2018-10-23] MEDS: Ferrous Gluconate TAB* 324 MG TAB PO SCH (09:21)
[2018-10-23] MEDS: PTO:Multivitamins/Mins (NF) AREDS2 1 CAP CAP PO SCH (09:21)
[2018-10-23] MEDS: Metoprolol Tartrate TAB* 25 MG PO SCH (09:21)
[2018-10-23] MEDS: Aspirin EC TAB* 81 MG TAB.EC PO SCH (09:21)
[2018-10-23] MEDS: Psyllium PAK PO SCH (09:21)
[2018-10-23] MEDS: Cholecalciferol TAB* 1000 UNITS PO SCH (09:21)
[2018-10-23] MEDS: Magnesium Oxide TAB* 400 MG PO SCH (09:22)
[2018-10-23] MEDS: Acetaminophen TAB* 325 MG PO PRN (09:31)
[2018-10-23] MEDS: Verapamil TAB* 120 MG PO SCH (09:32)
--- NOTE | 2018-10-23 14:26 | DS ---
CC: Dr. Lu; Dr. Pacheco; Dr. Joseph; Dr. Pillai* DISCHARGE SUMMARY: DATE OF ADMISSION: 10/20/18 DATE OF DISCHARGE: 10/23/18 PRIMARY CARE PROVIDER: Dr. Pillai. DISCHARGE DIAGNOSIS: Prepatellar bursitis that failed outpatient antibiotic treatment. SECONDARY DIAGNOSES: 1. History of prostate cancer, status post chemotherapy. 2. History of chronic atrial fibrillation, on anticoagulation with Coumadin. 3. History of partial deep venous thrombosis in 2012 after his prostatectomy. 4. Dyslipidemia. 5. Thoracic neuritis. 6. History of lumbar stenosis. 7. Restless leg syndrome. 8. Hypertension. 9. History of status post mitral valve repair/annuloplasty performed in 2009 as well as maze procedure. 10. Status post aortic valve replacement in 2014, bioprosthetic valve. 11. Mitral regurgitation. 12. Subdural hematoma in 2006, status post evacuation. MEDICATIONS AT DISCHARGE: Augmentin 875 mg b.i.d. for a total of 7 days. There are many medications unchanged from admission that include 1. Acetaminophen on a p.r.n. basis. 2. Aspirin 81 mg daily. 3. Vitamin D3 at 1000 units daily. 4. Ferrous gluconate 325 mg daily. 5. Glucosamine 1500 mg b.i.d. 6. Guaifenesin on a p.r.n. basis. 7. Atrovent inhaler to both nostrils p.r.n. 8. Mag-Ox 400 mg daily. 9. Metoprolol tartrate 25 mg b.i.d. 10. Mirabegron 50 mg daily. 11. Pravachol 20 mg daily. 12. Metamucil 2 packets daily. 13. Verapamil 120 mg b.i.d. 14. Multivitamin A, C, zinc, and copper supplement 1 tablet b.i.d. 15. Coumadin to be held until INR is below 2.5 to restart. CONSULTATION DURING HOSPITAL STAY: Dr. Lu from Orthopedic Surgery. LABORATORY DATA AND STUDIES PERFORMED DURING HOSPITAL STAY: On 10/21/18, sodium 133, potassium 4.7, chloride 104, carbon dioxide 25, BUN 24, creatinine 0.92. The patient's INR on the day of discharge was 3.25. White blood cell count of 5.6, hemoglobin 11.0, hematocrit 32, MCV of 101, platelets of 217. 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 Lu's office on 10/20/18 after he was seen in followup for patellar bursitis. Dr. Lu started the patient on Bactrim a week prior to his presentation to the ED. Unfortunately, the knee continued to get swollen and the cellulitis did not improve. The patient was diagnosed by the orthopedic service of prepatellar bursitis and knee cellulitis. He was started on Zosyn during hospital with good results. The erythema started resolving, although at this point the patient has rather purplish discoloration of his right knee. A night prior to discharge, the skin opened at the bottom of his right knee and started draining serous discharge. The patient had been afebrile throughout his hospital stay and nontoxic. The patient was okayed for discharge by the orthopedic service on 10/23/18. The patient was recommended to cover his wound with gauze and change dressings daily. He is okay to use Michel bandages of the right foot to improve circulation. He has chronic right lower extremity edema due to partial DVT on that leg in 2012 and the edema got worse during the ongoing infection treatment. Please also note that patient stated that this all started after he had a dentist appointment approximately 2 weeks prior and developed bilateral buttock ecchymosis and posterior thigh ecchymosis while sitting on the dentist chair for prolonged period of time. He still has ecchymosis on his buttocks and bilateral thighs that are healing by the time of discharge. PHYSICAL EXAM AT THE TIME OF DISCHARGE: Vital signs: Blood pressure 151/83, heart rate of 70 regular, respiratory rate 15, oxygen saturation 100% on room air, temperature 97.7. General: The patient is a pleasant 83-year-old male who is in no acute distress. Alert, awake, and oriented x3. HEENT: Head: Atraumatic and normocephalic. Eyes: Pupils are equal, round, and reactive to light and accommodation. Oropharynx clear. Mucosa moist. Neck: Supple. No JVD, no bruits bilaterally. Cardiovascular: Regular rate and rhythm. No murmurs. Respiratory: Clear to auscultation bilaterally. Abdomen: Soft, nontender. Bowel sounds are present in all 4 quadrants. Extremities: There is entire right leg edema, more so of the right knee and below the right knee; it is pitting, it is +1 to 2. There is no clubbing and no cyanosis. The right knee has prepatellar bursitis with fluid noted around the patella with significant edema. The right knee erythema is now turned into a more purple color and is surrounding only the area of the right patella. There is a small area of open skin of approximately 1 x 1 cm at the bottom of the right knee with serous drainage noted. On remaining evaluation of the skin, the patient has resolving ecchymotic areas of bilateral buttocks and posterior thighs. On neuro evaluation, speech clear. Cranial nerves II through XII are grossly intact. Motor strength is 5/5 bilaterally. Please note that this is a short summary of the patient's hospital stay. Please refer to further medical records for details. CONDITION AT DISCHARGE: Stable. FOLLOWUP AT DISCHARGE: The patient is to follow up with the primary care provider in 4 to 7 days. The patient is scheduled for an appointment with Dr. Joseph from orthopedic surgery for followup on 10/26/18 at 1:45 p.m. [id number]/[facility] #: [id number] MTDD
== END 2018-10-23 13:30 | disposition home or self-care (01) | DRG 558 ==
LOC: MED 12:48 → OBSVTOIN 15:06
PROVIDERS: ADMIT Orthopaedic Surgery; ATTEND Internal Medicine
DX: M71.161 Other infective bursitis, right knee (principal); L03.115 Cellulitis of right lower limb; I82.511 Chronic embolism and thrombosis of right femoral vein; I48.2 Chronic atrial fibrillation; E78.5 Hyperlipidemia, unspecified; I10 Essential (primary) hypertension; G25.81 Restless legs syndrome; H35.30 Unspecified macular degeneration; M48.061 Spinal stenosis, lumbar region without neurogenic claudication; Z88.8 Allergy status to other drugs, medicaments and biological substances; Z85.46 Personal history of malignant neoplasm of prostate; Z86.718 Personal history of other venous thrombosis and embolism; Z92.21 Personal history of antineoplastic chemotherapy; Z90.79 Acquired absence of other genital organ(s); Z95.2 Presence of prosthetic heart valve; Z87.891 Personal history of nicotine dependence; Z79.82 Long term (current) use of aspirin; Z79.01 Long term (current) use of anticoagulants
CPT/HCPCS: 36415; 80048; 80053; 85025; 85610; 87040; A9270-GY; G8978-GP-CI; G8979-GP-CI; G8980-GP-CI; J1642; J2543

== ENCOUNTER 2018-11-26 11:43 | Emergency (ER) | payer MEDICARE ==
[2018-11-26 11:56] VITALS: BP 124/69
--- NOTE | 2018-11-26 12:34 | UC ---
General HPI - HPI Summary HPI Summary: 83-year-old male comes in with a chief complaint of bilateral pedal edema. This started in the last couple of days. He was unable to see his primary care doctor today and he came here to the clinic. No chest pain no shortness of breath. The edema is worse as the day goes on. When he lays down in the evening, wakes up in the morning the edema has had at least. Patient recently had a right-sided prepatellar bursitis that's been treated by orthopedics with antibiotics and that's improve now. His history of deep venous thrombosis for about a year ago on the right leg. This present pedal edema is not remind him of the DVT. He has had pedal edema in the past and been treated with Lasix for it. Denies any history of kidney problems. No complaint of any abdominal pain or flank pain. He's had a history of a prostatectomy and does not suffer from BPH. - History of Current Complaint Chief Complaint: UCLowerExtremity Stated Complaint: FLUID IN LEG Time Seen by Provider: 11/26/18 12:07 Pain Intensity: 0 - Allergy/Home Medications Allergies/Adverse Reactions: Allergies Allergy/AdvReac Type Severity Reaction Status Date / Time diltiazem [From Cardizem] Allergy Headache Verified 11/26/18 11:56 DUST Allergy MINOR Uncoded 11/26/18 11:56 PMH/Surg Hx/FS Hx/Imm Hx Previously Healthy: Yes Cardiovascular History: Cardiac Disease, Hypertension, Deep Vein Thrombosis - Surgical History Surgical History: Yes Surgery Procedure, Year, and Place: POWERPORT;. Prostatectomy 1996;. colonoscopies 3X done at [facility] [place];. Subdural hematoma 2005 @ [facility] [place];. Heart Valve repair 2008 @ [facility];. Varicose Veins @ [place] 1960; 1969. Left Elbow bursa removed 1967. AORTIC VALVE REPLACED Jan 2015 - Family History Known Family History: Positive: Unknown - Social History Alcohol Use: Weekly Alcohol Amount: 2 drinks Substance Use Type: None Smoking Status (MU): Former Smoker Type: Cigarettes Amount Used/How Often: PACK A DAY Have You Smoked in the Last Year: No When Did the Patient Quit Smoking/Using Tobacco: 1974 - Immunization History Most Recent Influenza Vaccination: UNK Most Recent Tetanus Shot: 5 years ago Most Recent Pneumonia Vaccination: K Review of Systems All Other Systems Reviewed And Are Negative: Yes Constitutional: Positive: Negative Skin: Positive: Other - SEE HPI Eyes: Positive: Negative ENT: Positive: Negative Respiratory: Positive: Negative Cardiovascular: Positive: Negative Gastrointestinal: Positive: Negative Genitourinary: Positive: Negative Motor: Positive: Negative Neurovascular: Positive: Negative Musculoskeletal: Positive: Edema Neurological: Positive: Negative Psychological: Positive: Negative Is Patient Immunocompromised?: No Physical Exam Triage Information Reviewed: Yes Appearance: Well-Appearing, No Pain Distress, Well-Nourished Vital Signs: Initial Vital Signs Temp 97.7 F 11/26/18 11:51 Pulse 64 11/26/18 11:51 Resp 18 11/26/18 11:51 BP 124/69 11/26/18 11:51 Pulse Ox 98 11/26/18 11:51 Vital Signs Reviewed: Yes Eye Exam: Normal Eyes: Positive: Conjunctiva Clear Neck: Positive: Supple Respiratory: Positive: Lungs clear, Normal breath sounds, No respiratory distress Cardiovascular: Positive: RRR Musculoskeletal: Positive: Edema @ - B/L PITTING EDEMAUP TO THE THIGH, SYMMETRIC. Neurological Exam: Normal Neurological: Positive: Alert, Muscle Tone Normal Psychological Exam: Normal Psychological: Positive: Age Appropriate Behavior Skin: Positive: Other - Mild erythema rt anterior knee. No calor. Course/Dx - Course Course Of Treatment: I prescribed Lasix 20 mg once a day for 5 days. Most recent creatinine was normal. Recent CT did not show any hydronephrosis or enlarged bladder. Patient has no suprapubic tenderness or flank pain. He has no chest pain or shortness of breath. He feels well otherwise. The swelling is symmetric and the patient's is on Coumadin making DVT unlikely. The patient will follow-up his primary care doctor. I discussed with him that if anything got worse with chest pain shortness of breath he felt ill he needed to get reevaluated in the emergency department right away. CBC CMP and BNP are pending. - Diagnoses Provider Diagnosis: Pedal edema Discharge - Sign-Out/Discharge Documenting (check all that apply): Patient Departure All imaging exams completed and their final reports reviewed: No Studies - Discharge Plan Condition: Stable Disposition: HOME Prescriptions: Furosemide TAB* [Lasix TAB*] 20 mg PO DAILY #5 tab Patient Education Materials: Leg Edema (ED) Referrals: Jaime Pillai MD [Primary Care Provider] - Additional Instructions: FOLLOW UP WITH YOUR DOCTOR IN THE NEXT 5 DAYS. GO TO THE EMERGENCY DEPARTMENT IF YOUR CONDITION WORSENS; WORSENING EDEMA, SHORTNESS OF BREATH, CHEST PAIN, YOU FEEL ILL OR ANY QUESTIONS OR CONCERNS. - Billing Disposition and Condition Condition: STABLE Disposition: Home
[2018-11-26 16:37] LABS: ABS Eosinophils 0.1 10^3/ul (0-0.6); ABS Lymphocytes 0.6 10^3/ul (1.0-4.8); ABS Monocytes 0.6 10^3/ul (0-0.8); ABS Neutrophils 3.4 10^3/ul (1.5-7.7); Hematocrit 36 % (42-52); Lymphocyte % 11.6 %; Mean Corpuscular HGB Conc 33 g/dL (31-36); Mean Corpuscular Hemoglobin 34 pg (27-31); Mean Corpuscular Volume 102 fL (80-94); Mean Platelet Volume 8.3 fL (7.4-10.4); Nucleated Red Blood Cells % 0.1; Platelet Count 118 10^3/uL (150-450); Red Blood Count 3.51 10^6 /uL (4.18-5.48); Red Cell Distribution Width 15 % (10.5-15); White Blood Count 4.7 10^3/uL (3.5-10.8)
[2018-11-26 17:43] LABS: Calcium 9.7 mg/dL (8.6-10.3); Potassium 4.9 mmol/L (3.5-5.0); Total Bilirubin 0.9 mg/dL (0.2-1.0)
[2018-11-26 17:49] LABS: Albumin/Globulin Ratio 1.6 (1-3); BUN/Creatinine Ratio 25.6 (8-20); EGFR African American 108.3 (>60); EGFR Non-African American 89.5 (>60); Globulin 2.5 g/dL (2-4); Total Protein 6.5 g/dL (6.4-8.9)
== END 2018-11-26 12:55 | disposition home or self-care (01) ==
LOC: UCEAST 11:43
DX: R60.0 Localized edema (principal); I10 Essential (primary) hypertension; Z86.718 Personal history of other venous thrombosis and embolism; Z88.8 Allergy status to other drugs, medicaments and biological substances; Z91.09 Other allergy status, other than to drugs and biological substances
CPT/HCPCS: 36415; 80053; 83880; 85025; 99212; G0463

== ENCOUNTER 2020-08-15 17:42 | Inpatient (IN) ==
[2020-08-15 19:19] LABS: ABS Eosinophils 0.1 10^3/ul (0-0.6); ABS Lymphocytes 1.2 10^3/ul (1.0-4.8); ABS Monocytes 0.9 10^3/ul (0-0.8); ABS Neutrophils 3.6 10^3/ul (1.5-7.7); Eosinophil % 1.9 %; Hematocrit 44 % (42-52); Lymphocyte % 20.4 %; Mean Corpuscular HGB Conc 34 g/dL (31-36); Mean Corpuscular Hemoglobin 34 pg (27-31); Mean Corpuscular Volume 100 fL (80-94); Mean Platelet Volume 8.4 fL (7.4-10.4); Nucleated Red Blood Cells % 0.1; Platelet Count 166 10^3/uL (150-450); Red Blood Count 4.38 10^6 /uL (4.18-5.48); Red Cell Distribution Width 13 % (10-15); White Blood Count 5.8 10^3/uL (3.5-10.8)
[2020-08-15 19:30] LABS: Albumin 4.6 g/dL (3.2-5.2); Albumin/Globulin Ratio 1.6 (1-3); BUN/Creatinine Ratio 31.3 (8-20); Calcium 9.8 mg/dL (8.6-10.3); EGFR African American 110.9 (>60); EGFR Non-African American 91.7 (>60); Globulin 2.8 g/dL (2-4); Potassium 4.1 mmol/L (3.5-5.0); Total Bilirubin 0.7 mg/dL (0.2-1.0); Total Protein 7.4 g/dL (6.4-8.9); Troponin I 0.01 ng/mL (<0.03)
[2020-08-15 20:39] LABS: INR 2.93 (0.82-1.09)
[2020-08-15 22:27] LABS: Magnesium 1.9 mg/dL (1.9-2.7)
[2020-08-15 22:44] LABS: Troponin I 0.03 ng/mL (<0.03)
[2020-08-16] MEDS ORDERED: hydrALAZINE 20 mg/ml 1 ML Vial IV IV SLOW PU PRN (01:08)
[2020-08-16 04:34] LABS: INR 2.72 (0.82-1.09)
[2020-08-16] MEDS ORDERED: Regadenoson 0.4 MG/5 ML SYRINGE ONE (09:12)
[2020-08-16] MEDS ORDERED: Aminophylline 25 MG/ML VIAL ONE (09:13)
[2020-08-16] MEDS: Psyllium PAK PO SCH (11:52)
[2020-08-16] MEDS: Aspirin EC 81 mg TAB.EC (enteric coated) PO SCH (11:55)
[2020-08-16] MEDS: Multivitamins/Minerals TAB PO SCH (11:57)
[2020-08-16] MEDS: NF: Mirabegron 50 mg ER TAB (NF) PO SCH (11:57)
[2020-08-17] MEDS: Aspirin EC 81 mg TAB.EC (enteric coated) PO SCH (09:55)
[2020-08-17] MEDS: Multivitamins/Minerals TAB PO SCH (10:03)
[2020-08-17] MEDS: NF: Mirabegron 50 mg ER TAB (NF) PO SCH (10:03)
[2020-08-17] MEDS: Psyllium PAK PO SCH (10:03)
[2020-08-17 11:08] LABS: Urine Appearance Clear; Urine Bilirubin Negative (Negative); Urine Blood Negative (Negative); Urine Color Yellow; Urine Glucose Negative (Negative); Urine Ketones Negative (Negative); Urine Nitrite Negative (Negative); Urine Protein Negative (Negative); Urine Specific Gravity 1.019 (1.010-1.030); Urine Urobilinogen Negative (Negative)
[2020-08-17 20:28] VITALS: BP 129/75
== END 2020-08-17 17:15 | disposition home or self-care (01) | DRG 310 ==
LOC: MEDTELE 17:42 → ED 17:42 → MEDTELE 23:00
PROVIDERS: ADMIT Student in an Organized Health Care Education/Training Program; ATTEND Internal Medicine

== ENCOUNTER 2020-11-13 05:37 | Inpatient (IN) ==
[2020-11-13] MEDS ORDERED: Lactated Ringers 1000 ml BAG 1,000 ML IV SCH ×2 (06:00→13:00)
[2020-11-13] MEDS ORDERED: Buffered Lidocaine 1% SYRIN 1 ml INTRADERM ONE (06:00)
[2020-11-13] MEDS ORDERED: ceFAZolin 2 GM PREMIX 2 GM/50 ML BAG ONE (06:02)
[2020-11-13] MEDS ORDERED: Dexamethasone IV 4 MG/ML VIAL 1 ml VIAL ONE ×2 (06:27→06:42)
[2020-11-13] MEDS ORDERED: Bupivacaine 0.5% SDV PF 30ML VIAL ONE ×2 (06:27→07:24)
[2020-11-13] MEDS ORDERED: Midazolam 2 mg/2 ml VIAL 1 mg/ml 2 ml VIAL (2 mg) ONE (06:27)
[2020-11-13 06:38] LABS: INR 1.27 (0.82-1.09)
[2020-11-13] MEDS ORDERED: fentaNYL 100 mcg/2 ml 50 MCG/ML VIAL ONE (06:42)
[2020-11-13] MEDS ORDERED: Propofol 10 MG/ML 20 ML BTL ONE (06:42)
[2020-11-13] MEDS ORDERED: Rocuronium 50 mg VIAL 10 mg/ml 5 ml VIAL (50 mg) ONE (06:42)
[2020-11-13] MEDS ORDERED: Lidocaine 2% PF 5 ML VIAL ONE (06:42)
[2020-11-13] MEDS ORDERED: Ondansetron 4 mg VIAL 2 MG/ML 2 ml VIAL ONE ×2 (06:42→12:27)
[2020-11-13] MEDS ORDERED: Lidocaine 1% MPF 5 ML VIAL ONE (07:05)
[2020-11-13] MEDS ORDERED: Vancomycin 1,000 MG VIAL ONE (07:24)
[2020-11-13] MEDS ORDERED: Phenylephrine IV 10 MG/ML 1 ml VIAL ONE (08:17)
[2020-11-13] MEDS ORDERED: fentaNYL 100 mcg/2 ml 50 MCG/ML VIAL IV PRN (08:32)
[2020-11-13] MEDS ORDERED: diPHENhydraMINE IV 50 MG/ML 1 ml VIAL (BENADRYL) IV PRN ×2 (08:32→13:00)
[2020-11-13] MEDS ORDERED: Naloxone 0.4 mg VIAL 0.4 mg/ml 1 ml VIAL IV PRN (08:32)
[2020-11-13 10:38] LABS: Hematocrit 34 % (42-52); Hemoglobin 11.2 g/dL (14.0-18.0)
[2020-11-13] MEDS ORDERED: EPHEDrine (Pressors) 50 MG/ML VIAL ONE (10:44)
[2020-11-13] MEDS ORDERED: Albumin Human 5% 12.5 GM/250 ML BTL IV ONE (11:00)
[2020-11-13 12:13] LABS: Hematocrit 32 % (42-52); Hemoglobin 10.4 g/dL (14.0-18.0); Mean Corpuscular HGB Conc 33 g/dL (31-36); Mean Corpuscular Hemoglobin 34 pg (27-31); Mean Corpuscular Volume 106 fL (80-94); Mean Platelet Volume 7.5 fL (7.4-10.4); Platelet Count 192 10^3/uL (150-450); Red Blood Count 3.03 10^6 /uL (4.18-5.48); Red Cell Distribution Width 15 % (10-15); White Blood Count 8.5 10^3/uL (3.5-10.8)
[2020-11-13 12:15] LABS: INR 1.42 (0.82-1.09)
[2020-11-13 12:26] LABS: Calcium 8.5 mg/dL (8.6-10.3); EGFR African American 123.3 (>60); EGFR Non-African American 101.9 (>60); Potassium 4.4 mmol/L (3.5-5.0)
[2020-11-13] MEDS ORDERED: diPHENhydraMINE IV 50 MG/ML 1 ml VIAL (BENADRYL) ONE (12:32)
[2020-11-13] MEDS ORDERED: Lactulose 30 ml UDC PO PRN (13:00)
[2020-11-13] MEDS ORDERED: Magnesium Hydroxide LIQ 30 ML UDC PO PRN (13:00)
[2020-11-13] MEDS ORDERED: Morphine 2 MG/ML SYRINGE IV PRN (13:00)
[2020-11-13] MEDS ORDERED: diPHENhydraMINE 25 mg TAB PO PRN (13:00)
[2020-11-13] MEDS ORDERED: Ondansetron ODT 4 mg TAB 4 MG TAB PO PRN (13:00)
[2020-11-13 14:19] LABS: Troponin I 0.01 ng/mL (<0.03)
[2020-11-13] MEDS: ceFAZolin 1 GM ADVAN 1 GM in NS 0.9% 50 ML 50 ML IVPB SCH (16:30)
[2020-11-13] MEDS: Ondansetron 4 mg VIAL 2 MG/ML 2 ml VIAL IV PRN (17:02)
[2020-11-13] MEDS ORDERED: Calcium Carb (TUMS) 500 mg CHEW TAB PO PRN (18:02)
[2020-11-13 18:17] LABS: Troponin I 0.03 ng/mL (<0.03)
[2020-11-13] MEDS: Magnesium Hydroxide LIQ 30 ML UDC PO SCH (21:58)
[2020-11-13 22:20] LABS: Hematocrit 27 % (42-52); Hemoglobin 8.8 g/dL (14.0-18.0)
[2020-11-13] MEDS ORDERED: Lactated Ringers 500 ml BAG 500 ML IV ONE (22:35)
[2020-11-13] MEDS: Multivitamins/Minera Areds(NF) CAP PO SCH (22:40)
[2020-11-13 22:42] LABS: Troponin I 0.04 ng/mL (<0.03)
[2020-11-14] MEDS: ceFAZolin 1 GM ADVAN 1 GM in NS 0.9% 50 ML 50 ML IVPB SCH ×4 (01:30→23:47)
[2020-11-14 02:04] LABS: ABS Lymphocytes 0.6 10^3/ul (1.0-4.8); ABS Neutrophils 8.8 10^3/ul (1.5-7.7); Hematocrit 25 % (42-52); Hemoglobin 8.6 g/dL (14.0-18.0); Lymphocyte % 5.9 %; Mean Corpuscular HGB Conc 34 g/dL (31-36); Mean Corpuscular Hemoglobin 36 pg (27-31); Mean Corpuscular Volume 106 fL (80-94); Mean Platelet Volume 8.6 fL (7.4-10.4); Platelet Count 170 10^3/uL (150-450); Red Blood Count 2.39 10^6 /uL (4.18-5.48); Red Cell Distribution Width 15 % (10-15); White Blood Count 10.5 10^3/uL (3.5-10.8)
[2020-11-14 02:05] LABS: INR 1.47 (0.82-1.09)
[2020-11-14 02:16] LABS: Anion Gap 5 mmol/L (2-11); Blood Urea Nitrogen 27 mg/dL (6-24); CO2 Carbon Dioxide 27 mmol/L (22-32); Calcium 8.2 mg/dL (8.6-10.3); Chloride 102 mmol/L (101-111); EGFR Non-African American 75.2 (>60); Glucose 159 mg/dL (70-100); Magnesium 1.7 mg/dL (1.9-2.7); Phosphorus 3.6 mg/dL (2.5-5.0); Potassium 4.6 mmol/L (3.5-5.0); Sodium 134 mmol/L (135-145)
[2020-11-14 02:19] LABS: Troponin I 0.05 ng/mL (<0.03)
[2020-11-14] MEDS ORDERED: Magnesium Sulfate IV 3 GM in NS 0.9% 100 ml BAG 100 ML IVPB ONE (03:02)
[2020-11-14] MEDS: Aspirin EC 81 mg TAB.EC (enteric coated) PO SCH (08:38)
[2020-11-14] MEDS: Cholecalciferol (VIT D3) 1,000 unit TAB PO SCH (08:38)
[2020-11-14] MEDS: Vitamin THERAPEUTIC TAB PO SCH (08:38)
[2020-11-14] MEDS: Psyllium PAK PO SCH (08:39)
[2020-11-14] MEDS: Magnesium Hydroxide LIQ 30 ML UDC PO SCH ×2 (08:39→21:48)
[2020-11-14] MEDS: Multivitamins/Minera Areds(NF) CAP PO SCH ×2 (09:04→23:04)
[2020-11-14] MEDS: PTO: Mirabegron 50 mg ER TAB (NF) PO SCH (09:04)
[2020-11-14] MEDS ORDERED: Potassium Chloride LIQUID 20 MEQ/15 ML LIQUID PO SCH (12:00)
[2020-11-14] MEDS: Enoxaparin 100 MG/ML SYR SUBCUT SCH ×2 (12:11→23:41)
[2020-11-14] MEDS: Morphine 2 MG/ML SYRINGE IV PRN ×2 (18:53→23:04)
[2020-11-14] MEDS: Ondansetron 4 mg VIAL 2 MG/ML 2 ml VIAL IV PRN (20:07)
[2020-11-14] MEDS ORDERED: fentaNYL 100 mcg/2 ml 50 MCG/ML VIAL IV SLOW PU ONE (20:51)
[2020-11-14] MEDS ORDERED: NS 0.9% 50 ML 50 ML ONE (23:38)
[2020-11-15] MEDS: Morphine 2 MG/ML SYRINGE IV PRN (04:57)
[2020-11-15] MEDS: Ondansetron 4 mg VIAL 2 MG/ML 2 ml VIAL IV PRN ×2 (05:24→22:40)
[2020-11-15 05:27] LABS: Hematocrit 20 % (42-52); Hemoglobin 6.7 g/dL (14.0-18.0); Mean Platelet Volume 8.3 fL (7.4-10.4); Platelet Count 165 10^3/uL (150-450)
[2020-11-15 05:38] LABS: INR 1.36 (0.82-1.09)
[2020-11-15 07:26] LABS: Hematocrit 20 % (42-52); Hemoglobin 6.5 g/dL (14.0-18.0)
[2020-11-15] MEDS: Vitamin THERAPEUTIC TAB PO SCH (07:44)
[2020-11-15] MEDS: Aspirin EC 81 mg TAB.EC (enteric coated) PO SCH (07:44)
[2020-11-15] MEDS: Cholecalciferol (VIT D3) 1,000 unit TAB PO SCH (07:44)
[2020-11-15] MEDS: ceFAZolin 1 GM ADVAN 1 GM in NS 0.9% 50 ML 50 ML IVPB SCH (07:44)
[2020-11-15] MEDS: Magnesium Hydroxide LIQ 30 ML UDC PO SCH ×2 (07:46→20:39)
[2020-11-15] MEDS: Psyllium PAK PO SCH (07:46)
[2020-11-15] MEDS: Multivitamins/Minera Areds(NF) CAP PO SCH (07:47)
[2020-11-15] MEDS: PTO: Mirabegron 50 mg ER TAB (NF) PO SCH (07:47)
[2020-11-15 08:23] LABS: Calcium 8.5 mg/dL (8.6-10.3); EGFR African American 60.1 (>60); EGFR Non-African American 49.7 (>60); Magnesium 2.8 mg/dL (1.9-2.7); Phosphorus 3.8 mg/dL (2.5-5.0); Potassium 4.9 mmol/L (3.5-5.0)
[2020-11-15] MEDS ORDERED: Ondansetron 4 mg VIAL 2 MG/ML 2 ml VIAL IV ONE (08:57)
[2020-11-15] MEDS ORDERED: Pantoprazole VIAL 40 MG VIAL IV ONE (14:12)
[2020-11-15] MEDS ORDERED: Metoclopramide 5 MG/ML VIAL (10 mg) IV ONE (14:12)
[2020-11-15 16:38] LABS: Hematocrit 25 % (42-52); Hemoglobin 8.2 g/dL (14.0-18.0)
[2020-11-15 16:56] LABS: Albumin/Globulin Ratio 1.7 (1-3); Calcium 8.4 mg/dL (8.6-10.3); EGFR African American 49.8 (>60); EGFR Non-African American 41.2 (>60); Globulin 1.8 g/dL (2-4); Potassium 4.8 mmol/L (3.5-5.0); Total Protein 4.8 g/dL (6.4-8.9)
[2020-11-15] MEDS ORDERED: D5W 1/2 NS 1000 ml BAG 1,000 ML IV SCH (19:00)
[2020-11-15 23:07] LABS: Hematocrit 22 % (42-52); Hemoglobin 7.4 g/dL (14.0-18.0)
[2020-11-16 06:01] LABS: Hematocrit 24 % (42-52); Hemoglobin 8.2 g/dL (14.0-18.0); Mean Platelet Volume 8.2 fL (7.4-10.4); Platelet Count 158 10^3/uL (150-450)
[2020-11-16 06:06] LABS: INR 1.33 (0.82-1.09)
[2020-11-16] MEDS: Ondansetron 4 mg VIAL 2 MG/ML 2 ml VIAL IV PRN (07:33)
[2020-11-16] MEDS: PTO: Mirabegron 50 mg ER TAB (NF) PO SCH (08:34)
[2020-11-16 08:45] LABS: Calcium 8.4 mg/dL (8.6-10.3); EGFR African American 42.2 (>60); EGFR Non-African American 34.8 (>60); Magnesium 3.4 mg/dL (1.9-2.7); Phosphorus 4.3 mg/dL (2.5-5.0)
[2020-11-16 08:48] LABS: Potassium 5.1 mmol/L (3.5-5.0)
[2020-11-16] MEDS: Magnesium Hydroxide LIQ 30 ML UDC PO SCH (08:48)
[2020-11-16] MEDS: Cholecalciferol (VIT D3) 1,000 unit TAB PO SCH (08:49)
[2020-11-16] MEDS: Vitamin THERAPEUTIC TAB PO SCH (08:49)
[2020-11-16] MEDS: Psyllium PAK PO SCH (08:49)
[2020-11-16] MEDS ORDERED: Bumetanide IV 0.25 MG/ML 4 ml VIAL (1 mg) SLOW PUSH ONE (09:07)
[2020-11-16 11:13] LABS: Urine Appearance Cloudy; Urine Bilirubin Negative (Negative); Urine Blood Negative (Negative); Urine Color Amber; Urine Glucose Negative (Negative); Urine Ketones Negative (Negative); Urine Nitrite Negative (Negative); Urine Protein Negative (Negative); Urine Urobilinogen Negative (Negative)
[2020-11-16] MEDS ORDERED: Perflutren Lipid Microsphere 3 ML VIAL ONE (11:47)
[2020-11-16] MEDS: Pantoprazole VIAL 40 MG VIAL IV SCH ×2 (12:36→20:15)
[2020-11-16] MEDS ORDERED: NS 0.9% IVPB ONE (13:00)
[2020-11-16] MEDS ORDERED: DESMOPRESSIN ACETATE IVPB ONE (13:00)
[2020-11-16] MEDS ORDERED: Pantoprazole VIAL 40 MG VIAL IV ONE (16:11)
[2020-11-16] MEDS ORDERED: Methylnaltrexone SQ (NF) 12 MG/0.6 ML VIAL SUBCUT ONE ×2 (16:13)
[2020-11-16 20:36] LABS: ABS Lymphocytes 0.7 10^3/ul (1.0-4.8); ABS Monocytes 1.3 10^3/ul (0-0.8); ABS Neutrophils 9.7 10^3/ul (1.5-7.7); ABS Nucleated RBC 0.1 10^3/ul; Hematocrit 24 % (42-52); Hemoglobin 7.9 g/dL (14.0-18.0); Lymphocyte % 6.1 %; Mean Corpuscular HGB Conc 34 g/dL (31-36); Mean Corpuscular Hemoglobin 34 pg (27-31); Mean Corpuscular Volume 100 fL (80-94); Mean Platelet Volume 8.3 fL (7.4-10.4); Nucleated Red Blood Cells % 1.2; Platelet Count 174 10^3/uL (150-450); Red Blood Count 2.35 10^6 /uL (4.18-5.48); Red Cell Distribution Width 17 % (10-15); White Blood Count 11.8 10^3/uL (3.5-10.8)
[2020-11-16 20:46] LABS: Albumin 2.8 g/dL (3.2-5.2); Albumin/Globulin Ratio 1.3 (1-3); Calcium 8.2 mg/dL (8.6-10.3); EGFR African American 35.4 (>60); EGFR Non-African American 29.3 (>60); Globulin 2.1 g/dL (2-4); Magnesium 3.4 mg/dL (1.9-2.7); Phosphorus 4.4 mg/dL (2.5-5.0); Potassium 4.8 mmol/L (3.5-5.0); Total Bilirubin 0.9 mg/dL (0.2-1.0); Total Protein 4.9 g/dL (6.4-8.9)
[2020-11-17 04:36] LABS: Hematocrit 23 % (42-52); Hemoglobin 7.5 g/dL (14.0-18.0); Mean Platelet Volume 8.6 fL (7.4-10.4); Platelet Count 177 10^3/uL (150-450)
[2020-11-17 05:54] LABS: INR 1.47 (0.82-1.09)
[2020-11-17] MEDS: Pantoprazole VIAL 40 MG VIAL IV SCH ×2 (07:23→20:08)
[2020-11-17] MEDS: Cholecalciferol (VIT D3) 1,000 unit TAB PO SCH (07:23)
[2020-11-17] MEDS: Vitamin THERAPEUTIC TAB PO SCH (07:24)
[2020-11-17] MEDS: Psyllium PAK PO SCH (07:24)
[2020-11-17] MEDS: PTO: Mirabegron 50 mg ER TAB (NF) PO SCH (07:32)
[2020-11-17 09:08] LABS: Calcium 7.7 mg/dL (8.6-10.3); EGFR African American 37.9 (>60); EGFR Non-African American 31.3 (>60); Potassium 4.9 mmol/L (3.5-5.0)
[2020-11-17] MEDS: Morphine 2 MG/ML SYRINGE IV PRN ×2 (13:07→20:09)
[2020-11-17 15:23] LABS: ABS Monocytes 1.1 10^3/ul (0-0.8); ABS Neutrophils 10.5 10^3/ul (1.5-7.7); Hematocrit 22 % (42-52); Hemoglobin 7.3 g/dL (14.0-18.0); Mean Corpuscular HGB Conc 34 g/dL (31-36); Mean Corpuscular Hemoglobin 33 pg (27-31); Mean Corpuscular Volume 98 fL (80-94); Mean Platelet Volume 7.9 fL (7.4-10.4); Nucleated Red Blood Cells % 0.2; Platelet Count 166 10^3/uL (150-450); Red Blood Count 2.23 10^6 /uL (4.18-5.48); Red Cell Distribution Width 17 % (10-15); White Blood Count 12.6 10^3/uL (3.5-10.8)
[2020-11-17 21:29] LABS: ABS Monocytes 1.2 10^3/ul (0-0.8); ABS Neutrophils 9.7 10^3/ul (1.5-7.7); Hematocrit 23 % (42-52); Hemoglobin 7.8 g/dL (14.0-18.0); Lymphocyte % 8.2 %; Mean Corpuscular HGB Conc 34 g/dL (31-36); Mean Corpuscular Hemoglobin 33 pg (27-31); Mean Corpuscular Volume 99 fL (80-94); Mean Platelet Volume 7.9 fL (7.4-10.4); Nucleated Red Blood Cells % 0.2; Platelet Count 160 10^3/uL (150-450); Red Blood Count 2.33 10^6 /uL (4.18-5.48); Red Cell Distribution Width 18 % (10-15); White Blood Count 11.8 10^3/uL (3.5-10.8)
[2020-11-17 21:50] LABS: Albumin 2.8 g/dL (3.2-5.2); Albumin/Globulin Ratio 1.3 (1-3); EGFR African American 41.9 (>60); EGFR Non-African American 34.6 (>60); Globulin 2.1 g/dL (2-4); Potassium 4.5 mmol/L (3.5-5.0); Total Protein 4.9 g/dL (6.4-8.9)
[2020-11-18] MEDS: Morphine 2 MG/ML SYRINGE IV PRN (00:24)
[2020-11-18 05:40] LABS: ABS Lymphocytes 0.8 10^3/ul (1.0-4.8); ABS Monocytes 1.1 10^3/ul (0-0.8); ABS Neutrophils 8.2 10^3/ul (1.5-7.7); Eosinophil % 0.2 %; Hematocrit 23 % (42-52); Hemoglobin 7.9 g/dL (14.0-18.0); Lymphocyte % 8.1 %; Mean Corpuscular HGB Conc 35 g/dL (31-36); Mean Corpuscular Hemoglobin 33 pg (27-31); Mean Corpuscular Volume 96 fL (80-94); Mean Platelet Volume 7.4 fL (7.4-10.4); Nucleated Red Blood Cells % 0.2; Platelet Count 148 10^3/uL (150-450); Red Blood Count 2.38 10^6 /uL (4.18-5.48); Red Cell Distribution Width 18 % (10-15); White Blood Count 10.1 10^3/uL (3.5-10.8)
[2020-11-18 05:56] LABS: EGFR African American 56.3 (>60); EGFR Non-African American 46.5 (>60); Potassium 4.6 mmol/L (3.5-5.0)
[2020-11-18 05:57] LABS: INR 1.27 (0.82-1.09)
[2020-11-18] MEDS: Vitamin THERAPEUTIC TAB PO SCH (08:45)
[2020-11-18] MEDS: Cholecalciferol (VIT D3) 1,000 unit TAB PO SCH (08:45)
[2020-11-18] MEDS: Psyllium PAK PO SCH (08:45)
[2020-11-18] MEDS: Pantoprazole VIAL 40 MG VIAL IV SCH ×2 (08:46→21:29)
[2020-11-18] MEDS: PTO: Mirabegron 50 mg ER TAB (NF) PO SCH (08:46)
[2020-11-18 08:50] LABS: Troponin I 0.04 ng/mL (<0.03)
[2020-11-19 04:42] LABS: ABS Eosinophils 0.1 10^3/ul (0-0.6); ABS Lymphocytes 0.8 10^3/ul (1.0-4.8); ABS Monocytes 1.1 10^3/ul (0-0.8); ABS Neutrophils 8.5 10^3/ul (1.5-7.7); Hematocrit 24 % (42-52); Hemoglobin 8.3 g/dL (14.0-18.0); Lymphocyte % 7.6 %; Mean Corpuscular HGB Conc 34 g/dL (31-36); Mean Corpuscular Hemoglobin 33 pg (27-31); Mean Corpuscular Volume 97 fL (80-94); Mean Platelet Volume 7.4 fL (7.4-10.4); Nucleated Red Blood Cells % 0.2; Platelet Count 162 10^3/uL (150-450); Red Blood Count 2.48 10^6 /uL (4.18-5.48); Red Cell Distribution Width 19 % (10-15); White Blood Count 10.6 10^3/uL (3.5-10.8)
[2020-11-19 05:18] LABS: EGFR African American 94.4 (>60); Potassium 3.8 mmol/L (3.5-5.0)
[2020-11-19] MEDS: Vitamin THERAPEUTIC TAB PO SCH (08:28)
[2020-11-19] MEDS: Psyllium PAK PO SCH (08:28)
[2020-11-19] MEDS: Cholecalciferol (VIT D3) 1,000 unit TAB PO SCH (08:28)
[2020-11-19] MEDS: Pantoprazole VIAL 40 MG VIAL IV SCH ×2 (08:29→20:25)
[2020-11-19] MEDS: PTO: Mirabegron 50 mg ER TAB (NF) PO SCH (08:29)
[2020-11-19] MEDS ORDERED: Potassium Chloride LIQUID 20 MEQ/15 ML LIQUID PO ONE (10:04)
[2020-11-20] MEDS: Morphine 2 MG/ML SYRINGE IV PRN (04:47)
[2020-11-20 05:10] LABS: ABS Eosinophils 0.2 10^3/ul (0-0.6); ABS Monocytes 1.4 10^3/ul (0-0.8); ABS Neutrophils 8.7 10^3/ul (1.5-7.7); Eosinophil % 1.6 %; Hematocrit 25 % (42-52); Hemoglobin 8.3 g/dL (14.0-18.0); Lymphocyte % 8.4 %; Mean Corpuscular HGB Conc 33 g/dL (31-36); Mean Corpuscular Hemoglobin 33 pg (27-31); Mean Corpuscular Volume 98 fL (80-94); Mean Platelet Volume 8.1 fL (7.4-10.4); Nucleated Red Blood Cells % 0.2; Platelet Count 137 10^3/uL (150-450); Red Blood Count 2.56 10^6 /uL (4.18-5.48); Red Cell Distribution Width 19 % (10-15); White Blood Count 11.3 10^3/uL (3.5-10.8)
[2020-11-20 05:24] LABS: Calcium 8.2 mg/dL (8.6-10.3); Potassium 3.9 mmol/L (3.5-5.0)
[2020-11-20 05:30] LABS: EGFR African American 110.9 (>60); EGFR Non-African American 91.7 (>60)
[2020-11-20] MEDS: Pantoprazole VIAL 40 MG VIAL IV SCH (08:17)
[2020-11-20] MEDS: Psyllium PAK PO SCH (08:17)
[2020-11-20] MEDS: Vitamin THERAPEUTIC TAB PO SCH (08:17)
[2020-11-20] MEDS: Cholecalciferol (VIT D3) 1,000 unit TAB PO SCH (08:17)
[2020-11-20] MEDS: PTO: Mirabegron 50 mg ER TAB (NF) PO SCH (08:26)
[2020-11-20] MEDS ORDERED: Morphine 2 MG/ML SYRINGE IV PRN (16:23)
[2020-11-21 06:29] LABS: Hematocrit 25 % (42-52); Hemoglobin 8.3 g/dL (14.0-18.0); Mean Corpuscular HGB Conc 34 g/dL (31-36); Mean Corpuscular Hemoglobin 33 pg (27-31); Mean Corpuscular Volume 98 fL (80-94); Platelet Count 215 10^3/uL (150-450); Red Cell Distribution Width 18 % (10-15); White Blood Count 8.6 10^3/uL (3.5-10.8)
[2020-11-21 06:35] LABS: INR 1.27 (0.82-1.09)
[2020-11-21 06:44] LABS: C Reactive Protein 95.63 mg/L (<8.01); Calcium 8.5 mg/dL (8.6-10.3); EGFR African American 115.9 (>60); EGFR Non-African American 95.8 (>60); Potassium 3.5 mmol/L (3.5-5.0)
[2020-11-21 07:14] LABS: ABS Eosinophils 0.2 10^3/ul (0-0.6); ABS Lymphocytes 0.9 10^3/ul (1.0-4.8); ABS Monocytes 1.2 10^3/ul (0-0.8); ABS Neutrophils 6.4 10^3/ul (1.5-7.7); Eosinophil % 2.3 %; Nucleated Red Blood Cells % 0.2
[2020-11-21 07:56] VITALS: BP 124/65
[2020-11-21] MEDS: Vitamin THERAPEUTIC TAB PO SCH (08:29)
[2020-11-21] MEDS: Cholecalciferol (VIT D3) 1,000 unit TAB PO SCH (08:36)
[2020-11-21] MEDS: PTO: Mirabegron 50 mg ER TAB (NF) PO SCH (08:37)
[2020-11-21] MEDS ORDERED: Pantoprazole VIAL 40 MG VIAL IV SCH (09:00)
[2020-11-21] MEDS ORDERED: Senna TAB 8.6 mg TAB PO SCH (10:00)
== END 2020-11-21 10:32 | DRG 493 ==
LOC: OR 05:37 → ICU 16:02 → SSU 11-20 16:28
PROVIDERS: ADMIT Internal Medicine; ATTEND Hospitalist

== ENCOUNTER 2020-11-21 10:17 | Inpatient (IN) ==
[2020-11-21] MEDS ORDERED: Senna TAB 8.6 mg TAB PO PRN (13:29)
[2020-11-21] MEDS ORDERED: Heparin DRIP 25,000 UNITS BAG 25,000 UNITS/500 ML BAG IV SCH (13:45)
[2020-11-21] MEDS ORDERED: Warfarin per PHARMACY **NOTE FOLLOW UP SCH (14:00)
[2020-11-21] MEDS ORDERED: Heparin 5000 UNITS/ML 1 mL VIAL IV SCH (14:00)
[2020-11-21] MEDS: CMC:Pravastatin 20 mg TAB (NF) PO SCH (17:54)
[2020-11-21] MEDS: Heparin DRIP 25,000 UNITS BAG 25,000 UNITS/500 ML BAG IV SCH (21:10)
[2020-11-21 23:17] LABS: Hematocrit 24 % (42-52); Hemoglobin 8.1 g/dL (14.0-18.0); Mean Corpuscular HGB Conc 34 g/dL (31-36); Mean Corpuscular Hemoglobin 34 pg (27-31); Mean Corpuscular Volume 98 fL (80-94); Platelet Count 227 10^3/uL (150-450); Red Blood Count 2.41 10^6 /uL (4.18-5.48); Red Cell Distribution Width 18 % (10-15); White Blood Count 11.6 10^3/uL (3.5-10.8)
[2020-11-21 23:42] LABS: Troponin I 0.03 ng/mL (<0.03)
[2020-11-21] MEDS: Al Hydrox/Mg Hydrox/Simet LIQ 30 ML UDC PO PRN (23:55)
[2020-11-22 00:42] LABS: Polychromasia 2+
[2020-11-22 00:45] LABS: ABS Basophils 0.1 10^3/ul (0-0.2); ABS Eosinophils 0.1 10^3/ul (0-0.6); ABS Lymphocytes 0.9 10^3/ul (1.0-4.8); ABS Monocytes 1.2 10^3/ul (0-0.8); ABS Neutrophils 9.3 10^3/ul (1.5-7.7); Eosinophil % 0.5 %; Lymphocyte % 8.1 %; Nucleated Red Blood Cells % 0.2
[2020-11-22 04:12] LABS: Troponin I 0.03 ng/mL (<0.03)
[2020-11-22 06:49] LABS: Hematocrit 23 % (42-52); Hemoglobin 7.6 g/dL (14.0-18.0); Mean Corpuscular HGB Conc 33 g/dL (31-36); Mean Corpuscular Hemoglobin 32 pg (27-31); Mean Corpuscular Volume 98 fL (80-94); Platelet Count 230 10^3/uL (150-450); Red Blood Count 2.33 10^6 /uL (4.18-5.48); Red Cell Distribution Width 18 % (10-15); White Blood Count 11.8 10^3/uL (3.5-10.8)
[2020-11-22 07:09] LABS: Albumin 2.4 g/dL (3.2-5.2); Calcium 8.1 mg/dL (8.6-10.3); Potassium 3.4 mmol/L (3.5-5.0); Total Bilirubin 0.9 mg/dL (0.2-1.0)
[2020-11-22 07:15] LABS: Albumin/Globulin Ratio 1.1 (1-3); EGFR African American 125.2 (>60); EGFR Non-African American 103.5 (>60); Globulin 2.1 g/dL (2-4); Total Protein 4.5 g/dL (6.4-8.9)
[2020-11-22 07:46] LABS: ABS Eosinophils 0.2 10^3/ul (0-0.6); ABS Lymphocytes 0.9 10^3/ul (1.0-4.8); ABS Monocytes 1.1 10^3/ul (0-0.8); ABS Neutrophils 9.7 10^3/ul (1.5-7.7); Eosinophil % 1.3 %; Lymphocyte % 7.5 %; Nucleated Red Blood Cells % 0.3
[2020-11-22 08:18] LABS: INR 1.39 (0.82-1.09)
[2020-11-22] MEDS: Aspirin EC 81 mg TAB.EC (enteric coated) PO SCH (08:39)
[2020-11-22] MEDS: NF:Mirabegron 50 mg ER TAB (NF) PO SCH (08:50)
[2020-11-22 12:15] LABS: Hematocrit 23 % (42-52); Hemoglobin 7.5 g/dL (14.0-18.0); Mean Corpuscular HGB Conc 33 g/dL (31-36); Mean Corpuscular Hemoglobin 33 pg (27-31); Mean Corpuscular Volume 98 fL (80-94); Mean Platelet Volume 7.4 fL (7.4-10.4); Platelet Count 226 10^3/uL (150-450); Red Blood Count 2.29 10^6 /uL (4.18-5.48); Red Cell Distribution Width 18 % (10-15); White Blood Count 11.8 10^3/uL (3.5-10.8)
[2020-11-22 12:16] LABS: ABS Eosinophils 0.2 10^3/ul (0-0.6); ABS Lymphocytes 0.8 10^3/ul (1.0-4.8); ABS Monocytes 1.3 10^3/ul (0-0.8); ABS Neutrophils 9.6 10^3/ul (1.5-7.7); Eosinophil % 1.4 %; Lymphocyte % 6.8 %; Nucleated Red Blood Cells % 0.1
[2020-11-22 15:19] LABS: Hematocrit 27 % (42-52); Hemoglobin 8.8 g/dL (14.0-18.0); Mean Corpuscular HGB Conc 33 g/dL (31-36); Mean Corpuscular Hemoglobin 33 pg (27-31); Mean Corpuscular Volume 100 fL (80-94); Mean Platelet Volume 6.9 fL (7.4-10.4); Platelet Count 255 10^3/uL (150-450); Red Blood Count 2.66 10^6 /uL (4.18-5.48); Red Cell Distribution Width 19 % (10-15)
[2020-11-22 15:22] LABS: ABS Eosinophils 0.1 10^3/ul (0-0.6); ABS Lymphocytes 0.9 10^3/ul (1.0-4.8); ABS Monocytes 1.6 10^3/ul (0-0.8); ABS Neutrophils 12.4 10^3/ul (1.5-7.7); Eosinophil % 0.6 %; Lymphocyte % 5.9 %
[2020-11-22] MEDS: Heparin DRIP 25,000 UNITS BAG 25,000 UNITS/500 ML BAG IV SCH (16:41)
[2020-11-22] MEDS: CMC:Pravastatin 20 mg TAB (NF) PO SCH (17:50)
[2020-11-22] MEDS: Warfarin DAILY REMINDER **NOTE FOLLOW UP SCH (17:52)
[2020-11-22 19:24] LABS: Urine Appearance Clear; Urine Bacteria 1+ (Absent); Urine Bilirubin Negative (Negative); Urine Blood 2+ (Negative); Urine Color Yellow; Urine Glucose Negative (Negative); Urine Ketones Negative (Negative); Urine Nitrite Negative (Negative); Urine Protein Negative (Negative); Urine Red Blood Cell 1+(3-5/hpf) (Absent); Urine Specific Gravity 1.023 (1.002-1.030); Urine Squamous Epithelial Cell Present (Absent); Urine Urobilinogen Negative (Negative); Urine White Blood Cell Trace(0-5/hpf) (Absent)
[2020-11-23] MEDS: HYDROcodone/ACETAMIN 5/325 mg TAB PO PRN ×3 (00:25→21:18)
[2020-11-23 03:31] LABS: Activated Partial Thrombo Time 34.3 seconds (26.0-38.0); INR 1.29 (0.82-1.09)
[2020-11-23] MEDS: NF:Mirabegron 50 mg ER TAB (NF) PO SCH (09:16)
[2020-11-23] MEDS: Aspirin EC 81 mg TAB.EC (enteric coated) PO SCH (09:16)
[2020-11-23] MEDS: Heparin DRIP 25,000 UNITS BAG 25,000 UNITS/500 ML BAG IV SCH (16:18)
[2020-11-23 16:54] LABS: ABS Eosinophils 0.1 10^3/ul (0-0.6); ABS Lymphocytes 0.7 10^3/ul (1.0-4.8); ABS Monocytes 1.1 10^3/ul (0-0.8); ABS Neutrophils 11.1 10^3/ul (1.5-7.7); Eosinophil % 0.6 %; Hematocrit 26 % (42-52); Hemoglobin 8.5 g/dL (14.0-18.0); Lymphocyte % 5.4 %; Mean Corpuscular HGB Conc 33 g/dL (31-36); Mean Corpuscular Hemoglobin 33 pg (27-31); Mean Corpuscular Volume 100 fL (80-94); Mean Platelet Volume 6.9 fL (7.4-10.4); Platelet Count 261 10^3/uL (150-450); Red Cell Distribution Width 19 % (10-15)
[2020-11-23] MEDS: CMC:Pravastatin 20 mg TAB (NF) PO SCH (18:07)
[2020-11-23] MEDS: Warfarin DAILY REMINDER **NOTE FOLLOW UP SCH (18:08)
[2020-11-24] MEDS: HYDROcodone/ACETAMIN 5/325 mg TAB PO PRN ×4 (02:20→21:55)
[2020-11-24 06:06] LABS: INR 1.42 (0.82-1.09)
[2020-11-24 06:07] LABS: Activated Partial Thrombo Time 76.7 seconds (26.0-38.0)
[2020-11-24] MEDS: NF:Mirabegron 50 mg ER TAB (NF) PO SCH (12:11)
[2020-11-24] MEDS: Aspirin EC 81 mg TAB.EC (enteric coated) PO SCH (12:12)
[2020-11-24 12:57] LABS: ABS Basophils 0.1 10^3/ul (0-0.2); ABS Eosinophils 0.1 10^3/ul (0-0.6); ABS Lymphocytes 0.7 10^3/ul (1.0-4.8); ABS Monocytes 0.9 10^3/ul (0-0.8); ABS Neutrophils 10.3 10^3/ul (1.5-7.7); Eosinophil % 0.6 %; Hematocrit 27 % (42-52); Hemoglobin 8.8 g/dL (14.0-18.0); Lymphocyte % 6.1 %; Mean Corpuscular HGB Conc 33 g/dL (31-36); Mean Corpuscular Hemoglobin 33 pg (27-31); Mean Corpuscular Volume 100 fL (80-94); Nucleated Red Blood Cells % 0.2; Platelet Count 274 10^3/uL (150-450); Red Cell Distribution Width 19 % (10-15); White Blood Count 12.1 10^3/uL (3.5-10.8)
[2020-11-24 13:15] LABS: Calcium 8.4 mg/dL (8.6-10.3); Potassium 3.4 mmol/L (3.5-5.0)
[2020-11-24 13:20] LABS: EGFR African American 136.1 (>60); EGFR Non-African American 112.5 (>60)
[2020-11-24] MEDS: Heparin DRIP 25,000 UNITS BAG 25,000 UNITS/500 ML BAG IV SCH (15:23)
[2020-11-24] MEDS: Potassium Chlor 20 meq TAB.ER PO SCH ×2 (16:14→21:52)
[2020-11-24] MEDS: Warfarin DAILY REMINDER **NOTE FOLLOW UP SCH (18:54)
[2020-11-24] MEDS: CMC:Pravastatin 20 mg TAB (NF) PO SCH (18:54)
[2020-11-25 06:19] LABS: ABS Basophils 0.1 10^3/ul (0-0.2); ABS Eosinophils 0.1 10^3/ul (0-0.6); ABS Lymphocytes 0.8 10^3/ul (1.0-4.8); ABS Monocytes 0.9 10^3/ul (0-0.8); ABS Neutrophils 7.2 10^3/ul (1.5-7.7); Eosinophil % 1.2 %; Hematocrit 25 % (42-52); Hemoglobin 8.7 g/dL (14.0-18.0); Lymphocyte % 8.4 %; Mean Corpuscular HGB Conc 34 g/dL (31-36); Mean Corpuscular Hemoglobin 34 pg (27-31); Mean Corpuscular Volume 99 fL (80-94); Mean Platelet Volume 6.8 fL (7.4-10.4); Nucleated Red Blood Cells % 0.1; Platelet Count 244 10^3/uL (150-450); Red Blood Count 2.55 10^6 /uL (4.18-5.48); Red Cell Distribution Width 19 % (10-15); White Blood Count 9.1 10^3/uL (3.5-10.8)
[2020-11-25 06:39] LABS: INR 1.56 (0.82-1.09)
[2020-11-25 06:41] LABS: Activated Partial Thrombo Time 103.7 seconds (26.0-38.0)
[2020-11-25] MEDS: NF:Mirabegron 50 mg ER TAB (NF) PO SCH (08:13)
[2020-11-25] MEDS: Potassium Chlor 20 meq TAB.ER PO SCH ×2 (08:14→20:45)
[2020-11-25] MEDS: Aspirin EC 81 mg TAB.EC (enteric coated) PO SCH (08:14)
[2020-11-25] MEDS: Heparin DRIP 25,000 UNITS BAG 25,000 UNITS/500 ML BAG IV SCH (15:22)
[2020-11-25] MEDS: CMC:Pravastatin 20 mg TAB (NF) PO SCH (18:30)
[2020-11-25] MEDS: Warfarin DAILY REMINDER **NOTE FOLLOW UP SCH (18:33)
[2020-11-25] MEDS: HYDROcodone/ACETAMIN 5/325 mg TAB PO PRN (20:50)
[2020-11-26] MEDS: Al Hydrox/Mg Hydrox/Simet LIQ 30 ML UDC PO PRN ×2 (01:00→21:31)
[2020-11-26] MEDS: HYDROcodone/ACETAMIN 5/325 mg TAB PO PRN (01:00)
[2020-11-26 08:16] LABS: ABS Eosinophils 0.1 10^3/ul (0-0.6); ABS Lymphocytes 0.8 10^3/ul (1.0-4.8); ABS Monocytes 0.9 10^3/ul (0-0.8); ABS Neutrophils 7.1 10^3/ul (1.5-7.7); Hematocrit 27 % (42-52); Hemoglobin 8.6 g/dL (14.0-18.0); Lymphocyte % 8.7 %; Mean Corpuscular HGB Conc 33 g/dL (31-36); Mean Corpuscular Hemoglobin 33 pg (27-31); Mean Corpuscular Volume 100 fL (80-94); Mean Platelet Volume 6.8 fL (7.4-10.4); Platelet Count 278 10^3/uL (150-450); Red Blood Count 2.65 10^6 /uL (4.18-5.48); Red Cell Distribution Width 19 % (10-15); White Blood Count 8.8 10^3/uL (3.5-10.8)
[2020-11-26 08:33] LABS: Calcium 8.7 mg/dL (8.6-10.3); EGFR African American 154.6 (>60); EGFR Non-African American 127.7 (>60); Potassium 4.2 mmol/L (3.5-5.0)
[2020-11-26 08:34] LABS: Activated Partial Thrombo Time 82.4 seconds (26.0-38.0); INR 1.62 (0.82-1.09)
[2020-11-26] MEDS: Aspirin EC 81 mg TAB.EC (enteric coated) PO SCH (10:39)
[2020-11-26] MEDS: NF:Mirabegron 50 mg ER TAB (NF) PO SCH (10:39)
[2020-11-26] MEDS: CMC:Pravastatin 20 mg TAB (NF) PO SCH (17:16)
[2020-11-26] MEDS: Warfarin DAILY REMINDER **NOTE FOLLOW UP SCH (17:16)
[2020-11-26] MEDS: Heparin DRIP 25,000 UNITS BAG 25,000 UNITS/500 ML BAG IV SCH (22:31)
[2020-11-27] MEDS: HYDROcodone/ACETAMIN 5/325 mg TAB PO PRN ×2 (00:44→14:49)
[2020-11-27 04:41] LABS: ABS Eosinophils 0.1 10^3/ul (0-0.6); ABS Lymphocytes 0.7 10^3/ul (1.0-4.8); ABS Neutrophils 7.7 10^3/ul (1.5-7.7); Eosinophil % 0.9 %; Hematocrit 25 % (42-52); Hemoglobin 8.5 g/dL (14.0-18.0); Lymphocyte % 7.6 %; Mean Corpuscular HGB Conc 33 g/dL (31-36); Mean Corpuscular Hemoglobin 33 pg (27-31); Mean Corpuscular Volume 100 fL (80-94); Mean Platelet Volume 6.7 fL (7.4-10.4); Platelet Count 240 10^3/uL (150-450); Red Blood Count 2.54 10^6 /uL (4.18-5.48); Red Cell Distribution Width 19 % (10-15); White Blood Count 9.6 10^3/uL (3.5-10.8)
[2020-11-27] MEDS: Aspirin EC 81 mg TAB.EC (enteric coated) PO SCH (09:19)
[2020-11-27 09:20] LABS: INR 1.8 (0.82-1.09)
[2020-11-27] MEDS: NF:Mirabegron 50 mg ER TAB (NF) PO SCH (09:20)
[2020-11-27] MEDS: CMC:Pravastatin 20 mg TAB (NF) PO SCH (17:25)
[2020-11-27] MEDS: Warfarin DAILY REMINDER **NOTE FOLLOW UP SCH (17:26)
[2020-11-28] MEDS: HYDROcodone/ACETAMIN 5/325 mg TAB PO PRN ×2 (00:02→04:03)
[2020-11-28 06:42] LABS: Hematocrit 26 % (42-52); Hemoglobin 8.5 g/dL (14.0-18.0); Mean Corpuscular HGB Conc 33 g/dL (31-36); Mean Corpuscular Hemoglobin 33 pg (27-31); Mean Corpuscular Volume 99 fL (80-94); Mean Platelet Volume 7.2 fL (7.4-10.4); Platelet Count 242 10^3/uL (150-450); Red Blood Count 2.57 10^6 /uL (4.18-5.48); Red Cell Distribution Width 19 % (10-15); White Blood Count 8.3 10^3/uL (3.5-10.8)
[2020-11-28 06:54] LABS: Activated Partial Thrombo Time 86.6 seconds (26.0-38.0); INR 2.1 (0.82-1.09)
[2020-11-28 07:24] LABS: ABS Eosinophils 0.1 10^3/ul (0-0.6); ABS Lymphocytes 0.6 10^3/ul (1.0-4.8); ABS Monocytes 0.9 10^3/ul (0-0.8); ABS Neutrophils 6.7 10^3/ul (1.5-7.7); Eosinophil % 1.3 %; Lymphocyte % 7.8 %
[2020-11-28 07:26] LABS: Polychromasia 1+
[2020-11-28] MEDS: Aspirin EC 81 mg TAB.EC (enteric coated) PO SCH (08:22)
[2020-11-28] MEDS: NF:Mirabegron 50 mg ER TAB (NF) PO SCH (08:23)
[2020-11-28] MEDS: CMC:Pravastatin 20 mg TAB (NF) PO SCH (17:23)
[2020-11-28] MEDS: Warfarin DAILY REMINDER **NOTE FOLLOW UP SCH (17:24)
[2020-11-29] MEDS: Al Hydrox/Mg Hydrox/Simet LIQ 30 ML UDC PO PRN (00:20)
[2020-11-29] MEDS: Heparin DRIP 25,000 UNITS BAG 25,000 UNITS/500 ML BAG IV SCH (03:13)
[2020-11-29 06:54] LABS: Activated Partial Thrombo Time 80.3 seconds (26.0-38.0); INR 2.47 (0.82-1.09)
[2020-11-29 07:12] LABS: Albumin 2.6 g/dL (3.2-5.2); Albumin/Globulin Ratio 1.2 (1-3); C Reactive Protein 18.19 mg/L (<8.01); Calcium 8.5 mg/dL (8.6-10.3); EGFR African American 138.5 (>60); EGFR Non-African American 114.4 (>60); Globulin 2.2 g/dL (2-4); Potassium 3.8 mmol/L (3.5-5.0); Total Bilirubin 0.9 mg/dL (0.2-1.0); Total Protein 4.8 g/dL (6.4-8.9)
[2020-11-29] MEDS: Aspirin EC 81 mg TAB.EC (enteric coated) PO SCH (10:08)
[2020-11-29] MEDS: NF:Mirabegron 50 mg ER TAB (NF) PO SCH (10:12)
[2020-11-29 11:25] LABS: ABS Basophils 0.1 10^3/ul (0-0.2); ABS Lymphocytes 0.6 10^3/ul (1.0-4.8); ABS Monocytes 1.1 10^3/ul (0-0.8); ABS Neutrophils 8.7 10^3/ul (1.5-7.7); Eosinophil % 0.3 %; Hematocrit 30 % (42-52); Hemoglobin 9.7 g/dL (14.0-18.0); Lymphocyte % 5.4 %; Mean Corpuscular HGB Conc 33 g/dL (31-36); Mean Corpuscular Hemoglobin 33 pg (27-31); Mean Corpuscular Volume 101 fL (80-94); Mean Platelet Volume 7.1 fL (7.4-10.4); Platelet Count 268 10^3/uL (150-450); Red Blood Count 2.94 10^6 /uL (4.18-5.48); Red Cell Distribution Width 19 % (10-15); White Blood Count 10.5 10^3/uL (3.5-10.8)
[2020-11-29] MEDS: CMC:Pravastatin 20 mg TAB (NF) PO SCH (17:30)
[2020-11-29] MEDS: Warfarin DAILY REMINDER **NOTE FOLLOW UP SCH (17:31)
[2020-11-30] MEDS: HYDROcodone/ACETAMIN 5/325 mg TAB PO PRN (01:53)
[2020-11-30 06:38] LABS: INR 2.92 (0.82-1.09)
[2020-11-30] MEDS: Aspirin EC 81 mg TAB.EC (enteric coated) PO SCH (13:42)
[2020-11-30] MEDS: NF:Mirabegron 50 mg ER TAB (NF) PO SCH (13:43)
[2020-11-30] MEDS: Warfarin DAILY REMINDER **NOTE FOLLOW UP SCH (17:26)
[2020-11-30] MEDS: CMC:Pravastatin 20 mg TAB (NF) PO SCH (17:26)
[2020-12-01 08:31] LABS: INR 3.27 (0.82-1.09)
[2020-12-01] MEDS: Aspirin EC 81 mg TAB.EC (enteric coated) PO SCH (08:53)
[2020-12-01] MEDS: NF:Mirabegron 50 mg ER TAB (NF) PO SCH (08:55)
[2020-12-01 09:52] LABS: ABS Eosinophils 0.1 10^3/ul (0-0.6); ABS Lymphocytes 0.4 10^3/ul (1.0-4.8); ABS Monocytes 0.7 10^3/ul (0-0.8); ABS Neutrophils 4.5 10^3/ul (1.5-7.7); Hematocrit 26 % (42-52); Hemoglobin 8.5 g/dL (14.0-18.0); Lymphocyte % 7.8 %; Mean Corpuscular HGB Conc 33 g/dL (31-36); Mean Corpuscular Hemoglobin 34 pg (27-31); Mean Corpuscular Volume 101 fL (80-94); Mean Platelet Volume 7.6 fL (7.4-10.4); Nucleated Red Blood Cells % 0.1; Platelet Count 238 10^3/uL (150-450); Red Blood Count 2.55 10^6 /uL (4.18-5.48); Red Cell Distribution Width 20 % (10-15); White Blood Count 5.7 10^3/uL (3.5-10.8)
[2020-12-01] MEDS: Warfarin DAILY REMINDER **NOTE FOLLOW UP SCH (17:20)
[2020-12-01] MEDS: CMC:Pravastatin 20 mg TAB (NF) PO SCH (17:20)
[2020-12-02 06:47] LABS: ABS Eosinophils 0.1 10^3/ul (0-0.6); ABS Lymphocytes 0.5 10^3/ul (1.0-4.8); ABS Monocytes 0.7 10^3/ul (0-0.8); ABS Neutrophils 3.6 10^3/ul (1.5-7.7); Eosinophil % 1.7 %; Hematocrit 26 % (42-52); Hemoglobin 8.8 g/dL (14.0-18.0); Lymphocyte % 9.4 %; Mean Corpuscular HGB Conc 33 g/dL (31-36); Mean Corpuscular Hemoglobin 34 pg (27-31); Mean Corpuscular Volume 101 fL (80-94); Mean Platelet Volume 7.3 fL (7.4-10.4); Platelet Count 234 10^3/uL (150-450); Red Cell Distribution Width 20 % (10-15); White Blood Count 4.9 10^3/uL (3.5-10.8)
[2020-12-02 06:57] LABS: INR 3.27 (0.82-1.09)
[2020-12-02] MEDS: Aspirin EC 81 mg TAB.EC (enteric coated) PO SCH (09:40)
[2020-12-02] MEDS: NF:Mirabegron 50 mg ER TAB (NF) PO SCH (09:46)
[2020-12-02] MEDS: CMC:Pravastatin 20 mg TAB (NF) PO SCH (17:42)
[2020-12-02] MEDS: Warfarin DAILY REMINDER **NOTE FOLLOW UP SCH (17:43)
[2020-12-03 07:18] LABS: INR 3.06 (0.82-1.09)
[2020-12-03] MEDS: Aspirin EC 81 mg TAB.EC (enteric coated) PO SCH (08:21)
[2020-12-03] MEDS: NF:Mirabegron 50 mg ER TAB (NF) PO SCH (08:24)
[2020-12-03] MEDS: CMC:Pravastatin 20 mg TAB (NF) PO SCH (17:03)
[2020-12-03] MEDS: Warfarin DAILY REMINDER **NOTE FOLLOW UP SCH (17:23)
[2020-12-04] MEDS: HYDROcodone/ACETAMIN 5/325 mg TAB PO PRN (03:55)
[2020-12-04 05:09] LABS: INR 3.12 (0.82-1.09)
[2020-12-04] MEDS: Aspirin EC 81 mg TAB.EC (enteric coated) PO SCH (10:28)
[2020-12-04] MEDS: NF:Mirabegron 50 mg ER TAB (NF) PO SCH (10:29)
[2020-12-04 12:24] LABS: ABS Lymphocytes 0.4 10^3/ul (1.0-4.8); ABS Monocytes 0.7 10^3/ul (0-0.8); ABS Neutrophils 4.2 10^3/ul (1.5-7.7); Eosinophil % 0.7 %; Hematocrit 31 % (42-52); Lymphocyte % 7.1 %; Mean Corpuscular HGB Conc 32 g/dL (31-36); Mean Corpuscular Hemoglobin 34 pg (27-31); Mean Corpuscular Volume 104 fL (80-94); Mean Platelet Volume 7.6 fL (7.4-10.4); Nucleated Red Blood Cells % 0.1; Platelet Count 265 10^3/uL (150-450); Red Blood Count 2.96 10^6 /uL (4.18-5.48); Red Cell Distribution Width 21 % (10-15); White Blood Count 5.3 10^3/uL (3.5-10.8)
[2020-12-04] MEDS: CMC:Pravastatin 20 mg TAB (NF) PO SCH (17:17)
[2020-12-04] MEDS: Warfarin DAILY REMINDER **NOTE FOLLOW UP SCH (17:17)
[2020-12-05] MEDS: Aspirin EC 81 mg TAB.EC (enteric coated) PO SCH (08:42)
[2020-12-05] MEDS: NF:Mirabegron 50 mg ER TAB (NF) PO SCH (08:43)
[2020-12-05] MEDS: CMC:Pravastatin 20 mg TAB (NF) PO SCH (17:11)
[2020-12-05] MEDS: Warfarin DAILY REMINDER **NOTE FOLLOW UP SCH (17:12)
[2020-12-06 05:21] LABS: Albumin 2.8 g/dL (3.2-5.2); Albumin/Globulin Ratio 1.2 (1-3); Calcium 8.6 mg/dL (8.6-10.3); EGFR African American 129.4 (>60); EGFR Non-African American 106.9 (>60); Globulin 2.4 g/dL (2-4); Potassium 3.9 mmol/L (3.5-5.0); Total Bilirubin 0.9 mg/dL (0.2-1.0); Total Protein 5.2 g/dL (6.4-8.9)
[2020-12-06] MEDS: Aspirin EC 81 mg TAB.EC (enteric coated) PO SCH (08:39)
[2020-12-06] MEDS: NF:Mirabegron 50 mg ER TAB (NF) PO SCH (08:40)
[2020-12-06 12:52] LABS: ABS Eosinophils 0.1 10^3/ul (0-0.6); ABS Lymphocytes 0.4 10^3/ul (1.0-4.8); ABS Monocytes 0.7 10^3/ul (0-0.8); ABS Neutrophils 4.1 10^3/ul (1.5-7.7); Hematocrit 33 % (42-52); Hemoglobin 10.7 g/dL (14.0-18.0); Lymphocyte % 8.1 %; Mean Corpuscular HGB Conc 32 g/dL (31-36); Mean Corpuscular Hemoglobin 34 pg (27-31); Mean Corpuscular Volume 104 fL (80-94); Mean Platelet Volume 7.3 fL (7.4-10.4); Nucleated Red Blood Cells % 0.1; Platelet Count 297 10^3/uL (150-450); Red Blood Count 3.15 10^6 /uL (4.18-5.48); Red Cell Distribution Width 21 % (10-15); White Blood Count 5.4 10^3/uL (3.5-10.8)
[2020-12-06] MEDS: CMC:Pravastatin 20 mg TAB (NF) PO SCH (17:30)
[2020-12-06] MEDS: Warfarin DAILY REMINDER **NOTE FOLLOW UP SCH (17:33)
[2020-12-07] MEDS: Aspirin EC 81 mg TAB.EC (enteric coated) PO SCH (12:50)
[2020-12-07] MEDS: NF:Mirabegron 50 mg ER TAB (NF) PO SCH (12:56)
[2020-12-07] MEDS: CMC:Pravastatin 20 mg TAB (NF) PO SCH (17:13)
[2020-12-07] MEDS: Warfarin DAILY REMINDER **NOTE FOLLOW UP SCH (17:13)
[2020-12-08 04:42] VITALS: BP 136/75
[2020-12-08 07:15] LABS: ABS Eosinophils 0.1 10^3/ul (0-0.6); ABS Lymphocytes 0.5 10^3/ul (1.0-4.8); ABS Monocytes 0.6 10^3/ul (0-0.8); ABS Neutrophils 2.4 10^3/ul (1.5-7.7); Eosinophil % 2.4 %; Hematocrit 30 % (42-52); Hemoglobin 9.9 g/dL (14.0-18.0); Lymphocyte % 12.9 %; Mean Corpuscular HGB Conc 34 g/dL (31-36); Mean Corpuscular Hemoglobin 34 pg (27-31); Mean Corpuscular Volume 103 fL (80-94); Mean Platelet Volume 7.7 fL (7.4-10.4); Platelet Count 255 10^3/uL (150-450); Red Blood Count 2.88 10^6 /uL (4.18-5.48); Red Cell Distribution Width 20 % (10-15); White Blood Count 3.6 10^3/uL (3.5-10.8)
[2020-12-08 07:21] LABS: INR 2.53 (0.82-1.09)
[2020-12-08] MEDS: Aspirin EC 81 mg TAB.EC (enteric coated) PO SCH (08:35)
[2020-12-08] MEDS: NF:Mirabegron 50 mg ER TAB (NF) PO SCH (08:41)
== END 2020-12-08 11:15 | disposition home health service (06) ==
LOC: PMRU 11:30
PROVIDERS: ADMIT Physical Medicine & Rehabilitation; ATTEND Physical Medicine & Rehabilitation

== ENCOUNTER 2021-04-21 18:24 | Inpatient (IN) ==
[2021-04-21 20:08] LABS: Hematocrit 26 % (42-52); Hemoglobin 8.8 g/dL (14.0-18.0); Mean Corpuscular HGB Conc 34 g/dL (31-36); Mean Corpuscular Hemoglobin 33 pg (27-31); Mean Corpuscular Volume 98 fL (80-94); Mean Platelet Volume 8.1 fL (7.4-10.4); Platelet Count 170 10^3/uL (150-450); Red Blood Count 2.68 10^6 /uL (4.18-5.48); Red Cell Distribution Width 15 % (10-15); White Blood Count 13.6 10^3/uL (3.5-10.8)
[2021-04-21] MEDS ORDERED: Lidocaine 2% JELLY 6 ML TOPICAL ONE ×2 (20:09→20:18)
[2021-04-21 20:26] LABS: ALT 15 U/L (7-52); AST 20 U/L (13-39); Albumin 3.2 g/dL (3.2-5.2); Albumin/Globulin Ratio 1.3 (1-3); Alkaline Phosphatase 86 U/L (35-149); Anion Gap 8 mmol/L (2-11); Blood Urea Nitrogen 38 mg/dL (6-24); CO2 Carbon Dioxide 25 mmol/L (22-32); Chloride 98 mmol/L (101-111); Globulin 2.5 g/dL (2-4); Glucose 137 mg/dL (70-100); Potassium 3.8 mmol/L (3.5-5.0); Sodium 131 mmol/L (135-145); Total Protein 5.7 g/dL (6.4-8.9)
[2021-04-21 20:34] LABS: ABS Lymphocytes 0.3 10^3/ul (1.0-4.8); ABS Neutrophils 11.3 10^3/ul (1.5-7.7); INR 1.66 (0.86-1.15); Lymphocyte % 1.9 %
[2021-04-21 20:40] LABS: Troponin I 0.16 ng/mL (<0.03)
[2021-04-21 21:37] LABS: Rapid COVID-19 Molecular Undetected (Undetected)
[2021-04-21] MEDS ORDERED: Ondansetron 4 mg VIAL 2 MG/ML 2 ml VIAL IV PRN (21:44)
[2021-04-21] MEDS: cefTRIAXone 1 gm/50 mL NS BAG 1 GM/50 ML BAG IVPB SCH (23:36)
[2021-04-22 00:28] LABS: Urine Appearance Cloudy; Urine Bacteria Absent (Absent); Urine Bilirubin Negative (Negative); Urine Blood 3+ (Negative); Urine Glucose Negative (Negative); Urine Ketones Negative (Negative); Urine Nitrite Negative (Negative); Urine Protein 1+(30 mg/dL) (Negative); Urine Red Blood Cell 3+(>10/hpf) (Absent); Urine Specific Gravity 1.004 (1.002-1.030); Urine Urobilinogen Negative (Negative); Urine White Blood Cell 1+(6-10/hpf) (Absent)
[2021-04-22 00:35] LABS: Troponin I 0.15 ng/mL (<0.03)
[2021-04-22 00:53] LABS: Urine Color Red
[2021-04-22] MEDS: Lactated Ringers 1000 ml BAG 1,000 ML IV SCH ×2 (01:04→14:43)
[2021-04-22 01:09] LABS: Urine Creatinine Concentration 0.7 mg/dL
[2021-04-22 03:30] LABS: Hematocrit 27 % (42-52); Hemoglobin 9.1 g/dL (14.0-18.0)
[2021-04-22 04:04] LABS: Troponin I 0.14 ng/mL (<0.03)
[2021-04-22 06:13] LABS: Hematocrit 25 % (42-52); Hemoglobin 8.3 g/dL (14.0-18.0); Mean Corpuscular HGB Conc 33 g/dL (31-36); Mean Corpuscular Hemoglobin 33 pg (27-31); Mean Corpuscular Volume 99 fL (80-94); Platelet Count 161 10^3/uL (150-450); Red Blood Count 2.51 10^6 /uL (4.18-5.48); Red Cell Distribution Width 16 % (10-15); White Blood Count 12.6 10^3/uL (3.5-10.8)
[2021-04-22 06:25] LABS: INR 1.66 (0.86-1.15)
[2021-04-22 06:30] LABS: Calcium 8.4 mg/dL (8.6-10.3); Potassium 3.6 mmol/L (3.5-5.0)
[2021-04-22 07:34] LABS: ABS Lymphocytes 0.2 10^3/ul (1.0-4.8); ABS Monocytes 1.4 10^3/ul (0-0.8); Lymphocyte % 1.3 %
[2021-04-22 07:35] LABS: Basophilic Stippling 1+
[2021-04-22] MEDS ORDERED: Potassium Chlor 20 meq TAB.ER PO ONE (08:25)
[2021-04-22] MEDS: Mirabegron 50 mg ER TAB (NF) PO SCH (09:30)
[2021-04-22 11:46] LABS: Hematocrit 25 % (42-52); Hemoglobin 8.3 g/dL (14.0-18.0)
[2021-04-22 17:13] LABS: Hematocrit 27 % (42-52); Hemoglobin 8.8 g/dL (14.0-18.0)
[2021-04-22] MEDS: cefTRIAXone 1 gm/50 mL NS BAG 1 GM/50 ML BAG IVPB SCH (21:47)
[2021-04-22] MEDS: Ampicillin ADVAN 2 GM in NS 0.9% 100 ML 100 ML IVPB SCH (22:38)
[2021-04-23] MEDS ORDERED: Metoprolol Tartrate 5 mg VIAL 5 ml VIAL (1 mg/ml) IV ONE (00:52)
[2021-04-23] MEDS: Ampicillin ADVAN 2 GM in NS 0.9% 100 ML 100 ML IVPB SCH ×4 (03:24→21:52)
[2021-04-23 05:40] LABS: ABS Lymphocytes 0.3 10^3/ul (1.0-4.8); ABS Monocytes 1.1 10^3/ul (0-0.8); ABS Neutrophils 7.5 10^3/ul (1.5-7.7); Hematocrit 22 % (42-52); Hemoglobin 7.6 g/dL (14.0-18.0); Lymphocyte % 3.9 %; Mean Corpuscular HGB Conc 34 g/dL (31-36); Mean Corpuscular Hemoglobin 34 pg (27-31); Mean Corpuscular Volume 98 fL (80-94); Mean Platelet Volume 7.9 fL (7.4-10.4); Platelet Count 154 10^3/uL (150-450); Red Blood Count 2.26 10^6 /uL (4.18-5.48); Red Cell Distribution Width 15 % (10-15); White Blood Count 8.9 10^3/uL (3.5-10.8)
[2021-04-23 05:55] LABS: Calcium 7.9 mg/dL (8.6-10.3); Magnesium 1.7 mg/dL (1.9-2.7); Potassium 3.4 mmol/L (3.5-5.0)
[2021-04-23] MEDS ORDERED: Magnesium Sulfate 2 gm BAG 2 GM/50 ML BAG IVPB ONE (07:17)
[2021-04-23] MEDS: Potassium Chlor 20 meq TAB.ER PO SCH ×2 (09:36→21:52)
[2021-04-23] MEDS: Mirabegron 50 mg ER TAB (NF) PO SCH (09:37)
[2021-04-23 15:04] LABS: Hematocrit 27 % (42-52); Hemoglobin 9.1 g/dL (14.0-18.0)
[2021-04-23 15:21] LABS: Calcium 8.9 mg/dL (8.6-10.3); Potassium 3.9 mmol/L (3.5-5.0)
[2021-04-23] MEDS: [UNRECOGNIZED DRUG - OTHER] PO SCH (21:51)
[2021-04-24] MEDS: Ampicillin ADVAN 2 GM in NS 0.9% 100 ML 100 ML IVPB SCH ×4 (04:24→21:02)
[2021-04-24 05:26] LABS: Hematocrit 22 % (42-52); Hemoglobin 7.6 g/dL (14.0-18.0); Mean Corpuscular HGB Conc 34 g/dL (31-36); Mean Corpuscular Hemoglobin 33 pg (27-31); Mean Corpuscular Volume 98 fL (80-94); Platelet Count 180 10^3/uL (150-450); Red Blood Count 2.28 10^6 /uL (4.18-5.48); Red Cell Distribution Width 15 % (10-15)
[2021-04-24 05:51] LABS: Calcium 8.1 mg/dL (8.6-10.3); Magnesium 1.9 mg/dL (1.9-2.7); Potassium 3.7 mmol/L (3.5-5.0)
[2021-04-24] MEDS: [UNRECOGNIZED DRUG - OTHER] PO SCH ×2 (09:26→20:16)
[2021-04-24] MEDS ORDERED: Flumazenil 0.5 mg/5 ml 0.1 MG/ML 5 ml VIAL ONE (10:56)
[2021-04-24] MEDS ORDERED: Naloxone 0.4 mg VIAL 0.4 mg/ml 1 ml VIAL ONE (10:56)
[2021-04-24] MEDS ORDERED: Midazolam 5 mg/5 ml VIAL 1 mg/ml 5 ml VIAL (5 mg) ONE (10:56)
[2021-04-24] MEDS ORDERED: fentaNYL 100 mcg/2 ml 50 MCG/ML VIAL ONE (10:56)
[2021-04-24] MEDS ORDERED: Ondansetron 4 mg VIAL 2 MG/ML 2 ml VIAL ONE (11:07)
[2021-04-24 14:58] LABS: Hematocrit 25 % (42-52); Hemoglobin 8.3 g/dL (14.0-18.0)
[2021-04-24] MEDS: cefTRIAXone 2 GM ADDV.VIAL 2 GM in NS 0.9% 100 ml BAG 100 ML IV SCH (20:21)
[2021-04-24] MEDS ORDERED: cefTRIAXone 1 gm/50 mL NS BAG 1 GM/50 ML BAG IVPB SCH (21:00)
[2021-04-25] MEDS: Ampicillin ADVAN 2 GM in NS 0.9% 100 ML 100 ML IVPB SCH ×4 (03:04→21:43)
[2021-04-25 06:08] LABS: Hematocrit 24 % (42-52); Hemoglobin 7.9 g/dL (14.0-18.0); Mean Corpuscular HGB Conc 33 g/dL (31-36); Mean Corpuscular Hemoglobin 32 pg (27-31); Mean Corpuscular Volume 98 fL (80-94); Mean Platelet Volume 7.8 fL (7.4-10.4); Platelet Count 207 10^3/uL (150-450); Red Blood Count 2.45 10^6 /uL (4.18-5.48); Red Cell Distribution Width 15 % (10-15); White Blood Count 8.4 10^3/uL (3.5-10.8)
[2021-04-25 06:22] LABS: Calcium 8.2 mg/dL (8.6-10.3); Magnesium 1.7 mg/dL (1.9-2.7); Potassium 3.5 mmol/L (3.5-5.0)
[2021-04-25] MEDS ORDERED: Potassium Chlor 20 meq TAB.ER PO ONE (07:21)
[2021-04-25] MEDS ORDERED: Magnesium Sulfate 2 gm BAG 2 GM/50 ML BAG IVPB ONE (07:22)
[2021-04-25] MEDS: PTO: Mirabegron 50 mg ER TAB (NF) PO SCH (10:21)
[2021-04-25] MEDS: [UNRECOGNIZED DRUG - OTHER] PO SCH ×2 (10:26→21:43)
[2021-04-25] MEDS: cefTRIAXone 2 GM ADDV.VIAL 2 GM in NS 0.9% 100 ml BAG 100 ML IV SCH ×2 (13:11→22:23)
[2021-04-26] MEDS: Ampicillin ADVAN 2 GM in NS 0.9% 100 ML 100 ML IVPB SCH ×4 (04:06→21:17)
[2021-04-26 06:30] LABS: Hematocrit 24 % (42-52); Hemoglobin 8.2 g/dL (14.0-18.0); Mean Corpuscular HGB Conc 34 g/dL (31-36); Mean Corpuscular Hemoglobin 33 pg (27-31); Mean Corpuscular Volume 98 fL (80-94); Mean Platelet Volume 7.8 fL (7.4-10.4); Platelet Count 235 10^3/uL (150-450); Red Blood Count 2.49 10^6 /uL (4.18-5.48); Red Cell Distribution Width 15 % (10-15); White Blood Count 7.4 10^3/uL (3.5-10.8)
[2021-04-26 06:51] LABS: Calcium 8.5 mg/dL (8.6-10.3); Magnesium 1.9 mg/dL (1.9-2.7); Potassium 3.8 mmol/L (3.5-5.0)
[2021-04-26] MEDS: cefTRIAXone 2 GM ADDV.VIAL 2 GM in NS 0.9% 100 ml BAG 100 ML IV SCH ×2 (09:14→20:17)
[2021-04-26] MEDS: [UNRECOGNIZED DRUG - OTHER] PO SCH ×2 (09:15→20:17)
[2021-04-26] MEDS: PTO: Mirabegron 50 mg ER TAB (NF) PO SCH (09:18)
[2021-04-26] MEDS: LACTATED RINGERS 1000 ML BAG IV SCH (18:19)
[2021-04-27] MEDS: Ampicillin ADVAN 2 GM in NS 0.9% 100 ML 100 ML IVPB SCH ×4 (02:50→21:47)
[2021-04-27] MEDS: LACTATED RINGERS 1000 ML BAG IV SCH ×2 (02:50→11:54)
[2021-04-27] MEDS ORDERED: Buffered Lidocaine 1% SYRIN 1 ml INTRADERM ONE (06:00)
[2021-04-27 06:09] LABS: Hematocrit 25 % (42-52); Hemoglobin 8.3 g/dL (14.0-18.0); Mean Corpuscular HGB Conc 34 g/dL (31-36); Mean Corpuscular Hemoglobin 33 pg (27-31); Mean Corpuscular Volume 99 fL (80-94); Mean Platelet Volume 7.4 fL (7.4-10.4); Platelet Count 282 10^3/uL (150-450); Red Cell Distribution Width 15 % (10-15); White Blood Count 10.7 10^3/uL (3.5-10.8)
[2021-04-27 06:16] LABS: INR 1.48 (0.86-1.15)
[2021-04-27 06:26] LABS: Calcium 8.3 mg/dL (8.6-10.3); Magnesium 1.6 mg/dL (1.9-2.7); Potassium 3.3 mmol/L (3.5-5.0)
[2021-04-27] MEDS ORDERED: Ondansetron 4 mg VIAL 2 MG/ML 2 ml VIAL IV PRN (07:33)
[2021-04-27] MEDS ORDERED: HYDROmorphone 1 MG/1 ML SYRINGE IV PRN (07:33)
[2021-04-27] MEDS ORDERED: Naloxone 0.4 mg VIAL 0.4 mg/ml 1 ml VIAL IV PRN (07:33)
[2021-04-27] MEDS ORDERED: Lidocaine 2% PF 5 ML VIAL ONE (07:39)
[2021-04-27] MEDS ORDERED: Propofol 10 MG/ML 20 ML BTL ONE (07:39)
[2021-04-27] MEDS ORDERED: Midazolam 2 mg/2 ml VIAL 1 mg/ml 2 ml VIAL (2 mg) ONE (07:39)
[2021-04-27] MEDS ORDERED: Dexamethasone IV 4 MG/ML VIAL 1 ml VIAL ONE (07:39)
[2021-04-27] MEDS ORDERED: Ondansetron 4 mg VIAL 2 MG/ML 2 ml VIAL ONE (07:39)
[2021-04-27] MEDS ORDERED: fentaNYL 250 mcg/5 ml 50 MCG/ML 5 ml VIAL (250 MCG) ONE (07:39)
[2021-04-27 08:26] LABS: C Reactive Protein 50.68 mg/L (<8.01)
[2021-04-27] MEDS ORDERED: Furosemide 20 mg/2 ml IV VIAL ONE (09:06)
[2021-04-27] MEDS ORDERED: Iohexol 180 (CONTRAST) 20 ML SDV IV ONE (09:16)
[2021-04-27] MEDS ORDERED: fentaNYL 100 mcg/2 ml 50 MCG/ML VIAL ONE (10:02)
[2021-04-27] MEDS: fentaNYL 100 mcg/2 ml 50 MCG/ML VIAL IV PRN ×4 (10:03→10:23)
[2021-04-27] MEDS ORDERED: Lidocaine 2% JELLY 6 ML TOPICAL ONE (10:17)
[2021-04-27] MEDS: PTO: Mirabegron 50 mg ER TAB (NF) PO SCH (10:26)
[2021-04-27] MEDS: [UNRECOGNIZED DRUG - OTHER] PO SCH ×2 (10:27→21:16)
[2021-04-27] MEDS: cefTRIAXone 2 GM ADDV.VIAL 2 GM in NS 0.9% 100 ml BAG 100 ML IV SCH ×2 (11:54→21:15)
[2021-04-27] MEDS ORDERED: Potassium Chloride LIQUID 20 MEQ/15 ML LIQUID PO ONE (18:19)
[2021-04-27] MEDS: Lactated Ringers 1000 ml BAG 1,000 ML IV SCH (23:50)
[2021-04-28] MEDS: Ampicillin ADVAN 2 GM in NS 0.9% 100 ML 100 ML IVPB SCH ×2 (03:09→09:39)
[2021-04-28 05:18] LABS: ABS Lymphocytes 0.6 10^3/ul (1.0-4.8); ABS Monocytes 1.2 10^3/ul (0-0.8); ABS Neutrophils 13.5 10^3/ul (1.5-7.7); Hematocrit 21 % (42-52); Hemoglobin 7.2 g/dL (14.0-18.0); Lymphocyte % 3.6 %; Mean Corpuscular HGB Conc 34 g/dL (31-36); Mean Corpuscular Hemoglobin 33 pg (27-31); Mean Corpuscular Volume 97 fL (80-94); Mean Platelet Volume 7.3 fL (7.4-10.4); Nucleated Red Blood Cells % 0.1; Platelet Count 296 10^3/uL (150-450); Red Blood Count 2.18 10^6 /uL (4.18-5.48); Red Cell Distribution Width 15 % (10-15); White Blood Count 15.2 10^3/uL (3.5-10.8)
[2021-04-28 05:34] LABS: INR 1.55 (0.86-1.15)
[2021-04-28 05:35] LABS: Calcium 7.7 mg/dL (8.6-10.3); Potassium 3.8 mmol/L (3.5-5.0)
[2021-04-28] MEDS ORDERED: Potassium Chlor 20 meq TAB.ER PO ONE (06:48)
[2021-04-28] MEDS: PTO: Mirabegron 50 mg ER TAB (NF) PO SCH (08:25)
[2021-04-28] MEDS: cefTRIAXone 2 GM ADDV.VIAL 2 GM in NS 0.9% 100 ml BAG 100 ML IV SCH ×2 (08:26→21:29)
[2021-04-28] MEDS: [UNRECOGNIZED DRUG - OTHER] PO SCH ×2 (08:32→21:40)
[2021-04-28] MEDS: Lactated Ringers 1000 ml BAG 1,000 ML IV SCH (08:33)
[2021-04-28 13:59] LABS: Hematocrit 23 % (42-52); Hemoglobin 7.7 g/dL (14.0-18.0)
[2021-04-28] MEDS: Ampicillin ADVAN 2 GM in NS 0.9% 100 ml BAG 100 ML IVPB SCH ×3 (14:59→22:38)
[2021-04-29] MEDS: Ampicillin ADVAN 2 GM in NS 0.9% 100 ml BAG 100 ML IVPB SCH ×6 (02:20→21:28)
[2021-04-29 08:32] LABS: Hematocrit 22 % (42-52); Hemoglobin 7.4 g/dL (14.0-18.0); Mean Corpuscular HGB Conc 33 g/dL (31-36); Mean Corpuscular Hemoglobin 33 pg (27-31); Mean Corpuscular Volume 98 fL (80-94); Platelet Count 346 10^3/uL (150-450); Red Blood Count 2.27 10^6 /uL (4.18-5.48); Red Cell Distribution Width 15 % (10-15); White Blood Count 19.3 10^3/uL (3.5-10.8)
[2021-04-29 08:53] LABS: Calcium 8.1 mg/dL (8.6-10.3); Magnesium 1.4 mg/dL (1.9-2.7); Potassium 4.4 mmol/L (3.5-5.0)
[2021-04-29] MEDS ORDERED: Magnesium Sulfate IV 3 GM in NS 0.9% 100 ml BAG 100 ML IVPB ONE (09:11)
[2021-04-29] MEDS: cefTRIAXone 2 GM ADDV.VIAL 2 GM in NS 0.9% 100 ml BAG 100 ML IV SCH ×2 (09:26→20:55)
[2021-04-29] MEDS: [UNRECOGNIZED DRUG - OTHER] PO SCH ×2 (09:27→20:54)
[2021-04-29] MEDS: PTO: Mirabegron 50 mg ER TAB (NF) PO SCH (09:27)
[2021-04-29] MEDS ORDERED: Furosemide 20 mg/2 ml IV VIAL IV ONE (11:40)
[2021-04-30] MEDS: Ampicillin ADVAN 2 GM in NS 0.9% 100 ml BAG 100 ML IVPB SCH ×6 (02:40→23:09)
[2021-04-30 06:02] LABS: Hematocrit 20 % (42-52); Hemoglobin 6.6 g/dL (14.0-18.0); Mean Corpuscular HGB Conc 33 g/dL (31-36); Mean Corpuscular Hemoglobin 33 pg (27-31); Mean Corpuscular Volume 99 fL (80-94); Mean Platelet Volume 7.1 fL (7.4-10.4); Platelet Count 325 10^3/uL (150-450); Red Blood Count 2.02 10^6 /uL (4.18-5.48); Red Cell Distribution Width 16 % (10-15)
[2021-04-30 06:23] LABS: Calcium 7.4 mg/dL (8.6-10.3); Magnesium 1.6 mg/dL (1.9-2.7); Potassium 3.3 mmol/L (3.5-5.0)
[2021-04-30] MEDS ORDERED: Magnesium Sulfate IV 3 GM in NS 0.9% 100 ml BAG 100 ML IVPB ONE (07:20)
[2021-04-30] MEDS ORDERED: Potassium Chlor 20 meq TAB.ER PO ONE (08:00)
[2021-04-30] MEDS: [UNRECOGNIZED DRUG - OTHER] PO SCH ×2 (08:17→20:21)
[2021-04-30] MEDS: PTO: Mirabegron 50 mg ER TAB (NF) PO SCH (08:22)
[2021-04-30] MEDS: cefTRIAXone 2 GM ADDV.VIAL 2 GM in NS 0.9% 100 ml BAG 100 ML IV SCH ×2 (09:39→21:50)
[2021-04-30] MEDS ORDERED: HYDROmorphone 1 MG/1 ML SYRINGE IV PRN ×2 (10:16→18:00)
[2021-04-30 12:00] LABS: C Reactive Protein 120.35 mg/L (<8.01)
[2021-04-30] MEDS: Potassium Chlor 20 meq TAB.ER PO SCH (12:33)
[2021-04-30 16:35] LABS: Hematocrit 24 % (42-52); Hemoglobin 8.1 g/dL (14.0-18.0); Mean Corpuscular HGB Conc 34 g/dL (31-36); Mean Corpuscular Hemoglobin 33 pg (27-31); Mean Corpuscular Volume 97 fL (80-94); Mean Platelet Volume 7.1 fL (7.4-10.4); Platelet Count 350 10^3/uL (150-450); Red Blood Count 2.43 10^6 /uL (4.18-5.48); Red Cell Distribution Width 16 % (10-15); White Blood Count 17.8 10^3/uL (3.5-10.8)
[2021-04-30] MEDS ORDERED: Furosemide 20 mg/2 ml IV VIAL IV ONE (20:00)
[2021-04-30] MEDS ORDERED: Magnesium Hydroxide LIQ 30 ML UDC PO PRN (20:35)
[2021-04-30] MEDS ORDERED: Polyethylene Glycol 3350 17 GM PACKET PO PRN (20:35)
[2021-04-30] MEDS: Senna TAB 8.6 mg TAB PO PRN (21:48)
[2021-04-30] MEDS: Magnesium Hydroxide LIQ 30 ML UDC PO SCH (21:50)
[2021-05-01 01:46] LABS: Hematocrit 24 % (42-52)
[2021-05-01] MEDS: Ampicillin ADVAN 2 GM in NS 0.9% 100 ml BAG 100 ML IVPB SCH ×5 (02:08→18:39)
[2021-05-01 05:54] LABS: Hematocrit 23 % (42-52); Hemoglobin 7.5 g/dL (14.0-18.0); Mean Corpuscular HGB Conc 33 g/dL (31-36); Mean Corpuscular Hemoglobin 32 pg (27-31); Mean Corpuscular Volume 98 fL (80-94); Mean Platelet Volume 7.1 fL (7.4-10.4); Platelet Count 344 10^3/uL (150-450); Red Blood Count 2.33 10^6 /uL (4.18-5.48); Red Cell Distribution Width 16 % (10-15); White Blood Count 15.8 10^3/uL (3.5-10.8)
[2021-05-01 06:03] LABS: Calcium 7.5 mg/dL (8.6-10.3); Magnesium 1.8 mg/dL (1.9-2.7); Potassium 3.9 mmol/L (3.5-5.0)
[2021-05-01 09:09] LABS: C Reactive Protein 103.32 mg/L (<8.01)
[2021-05-01] MEDS: Potassium Chlor 20 meq TAB.ER PO SCH (10:30)
[2021-05-01] MEDS: cefTRIAXone 2 GM ADDV.VIAL 2 GM in NS 0.9% 100 ml BAG 100 ML IV SCH ×2 (10:40→21:39)
[2021-05-01] MEDS: Magnesium Hydroxide LIQ 30 ML UDC PO SCH ×2 (10:43→21:40)
[2021-05-01] MEDS: PTO: Mirabegron 50 mg ER TAB (NF) PO SCH (10:44)
[2021-05-01] MEDS: [UNRECOGNIZED DRUG - OTHER] PO SCH ×2 (10:45→21:51)
[2021-05-01] MEDS ORDERED: HYDROmorphone 1 MG/1 ML SYRINGE IV SLOW PU PRN (13:23)
[2021-05-01 15:32] LABS: Hematocrit 26 % (42-52); Hemoglobin 8.3 g/dL (14.0-18.0)
[2021-05-01 15:52] LABS: INR 1.38 (0.86-1.15)
[2021-05-02] MEDS: Ampicillin ADVAN 2 GM in NS 0.9% 100 ml BAG 100 ML IVPB SCH ×7 (00:10→22:15)
[2021-05-02 06:00] LABS: Hematocrit 25 % (42-52); Hemoglobin 8.3 g/dL (14.0-18.0); Mean Corpuscular HGB Conc 34 g/dL (31-36); Mean Corpuscular Hemoglobin 33 pg (27-31); Mean Corpuscular Volume 97 fL (80-94); Platelet Count 382 10^3/uL (150-450); Red Blood Count 2.54 10^6 /uL (4.18-5.48); Red Cell Distribution Width 16 % (10-15); White Blood Count 13.7 10^3/uL (3.5-10.8)
[2021-05-02 06:16] LABS: Calcium 7.9 mg/dL (8.6-10.3); INR 1.35 (0.86-1.15); Magnesium 1.7 mg/dL (1.9-2.7); Potassium 4.3 mmol/L (3.5-5.0)
[2021-05-02 06:22] LABS: Phosphorus 1.8 mg/dL (2.5-5.0)
[2021-05-02] MEDS: [UNRECOGNIZED DRUG - OTHER] PO SCH ×2 (09:05→21:25)
[2021-05-02] MEDS: cefTRIAXone 2 GM ADDV.VIAL 2 GM in NS 0.9% 100 ml BAG 100 ML IV SCH ×2 (09:05→19:51)
[2021-05-02] MEDS: Magnesium Hydroxide LIQ 30 ML UDC PO SCH ×2 (09:05→20:52)
[2021-05-02] MEDS ORDERED: HYDROmorphone 1 MG/1 ML SYRINGE IV SLOW PU PRN (09:27)
[2021-05-02] MEDS: PTO: Mirabegron 50 mg ER TAB (NF) PO SCH (10:40)
[2021-05-02] MEDS: Potassium Chlor 20 meq TAB.ER PO SCH (15:42)
[2021-05-02] MEDS ORDERED: Magnesium Sulf 4 GM/100 ML IV 4,000 MG/100 ML BAG IVPB ONE (19:23)
[2021-05-02] MEDS ORDERED: Potassium Phosphate IV 15 MMOLE in NS 0.9% 250 ml 250 ML IVPB ONE (19:23)
[2021-05-02] MEDS ORDERED: Sodium Phosphate IV 15 MMOLE in NS 0.9% 250 ml 250 ML IV ONE (21:00)
[2021-05-02] MEDS ORDERED: Calcium Carb (TUMS) 500 mg CHEW TAB PO ONE (22:22)
[2021-05-03] MEDS: Ampicillin ADVAN 2 GM in NS 0.9% 100 ml BAG 100 ML IVPB SCH ×6 (02:55→22:16)
[2021-05-03 05:57] LABS: Hematocrit 23 % (42-52); Hemoglobin 7.8 g/dL (14.0-18.0); Mean Corpuscular HGB Conc 34 g/dL (31-36); Mean Corpuscular Hemoglobin 33 pg (27-31); Mean Corpuscular Volume 98 fL (80-94); Mean Platelet Volume 6.8 fL (7.4-10.4); Platelet Count 351 10^3/uL (150-450); Red Blood Count 2.36 10^6 /uL (4.18-5.48); Red Cell Distribution Width 16 % (10-15); White Blood Count 10.2 10^3/uL (3.5-10.8)
[2021-05-03 06:25] LABS: Calcium 7.4 mg/dL (8.6-10.3); Magnesium 2.1 mg/dL (1.9-2.7); Potassium 4.2 mmol/L (3.5-5.0)
[2021-05-03] MEDS ORDERED: Furosemide 40 mg/4 ml IV VIAL IV SLOW PU ONE (07:34)
[2021-05-03] MEDS: cefTRIAXone 2 GM ADDV.VIAL 2 GM in NS 0.9% 100 ml BAG 100 ML IV SCH ×2 (08:29→21:37)
[2021-05-03] MEDS: Magnesium Hydroxide LIQ 30 ML UDC PO SCH ×2 (08:31→21:42)
[2021-05-03] MEDS: [UNRECOGNIZED DRUG - OTHER] PO SCH ×2 (08:33→21:37)
[2021-05-03] MEDS: PTO: Mirabegron 50 mg ER TAB (NF) PO SCH (08:34)
[2021-05-03 10:11] LABS: Phosphorus 2.6 mg/dL (2.5-5.0)
[2021-05-03] MEDS: Potassium Chlor 20 meq TAB.ER PO SCH (11:58)
[2021-05-03] MEDS ORDERED: Furosemide 40 mg/4 ml IV VIAL IV ONE (13:48)
[2021-05-03] MEDS: Calcium Carb (TUMS) 500 mg CHEW TAB PO PRN ×2 (16:59→21:41)
[2021-05-03] MEDS: Senna TAB 8.6 mg TAB PO PRN (21:38)
[2021-05-04] MEDS: Ampicillin ADVAN 2 GM in NS 0.9% 100 ml BAG 100 ML IVPB SCH ×5 (02:04→17:57)
[2021-05-04 06:09] LABS: Hematocrit 24 % (42-52); Hemoglobin 8.2 g/dL (14.0-18.0); Mean Corpuscular HGB Conc 34 g/dL (31-36); Mean Corpuscular Hemoglobin 33 pg (27-31); Mean Corpuscular Volume 98 fL (80-94); Mean Platelet Volume 6.9 fL (7.4-10.4); Platelet Count 359 10^3/uL (150-450); Red Blood Count 2.46 10^6 /uL (4.18-5.48); Red Cell Distribution Width 16 % (10-15); White Blood Count 9.7 10^3/uL (3.5-10.8)
[2021-05-04] MEDS ORDERED: Bumetanide IV 0.25 MG/ML 4 ml VIAL (1 mg) SLOW PUSH SCH (08:04)
[2021-05-04] MEDS: Magnesium Hydroxide LIQ 30 ML UDC PO SCH ×2 (08:36→20:02)
[2021-05-04] MEDS: PTO: Mirabegron 50 mg ER TAB (NF) PO SCH (08:36)
[2021-05-04] MEDS: cefTRIAXone 2 GM ADDV.VIAL 2 GM in NS 0.9% 100 ml BAG 100 ML IV SCH ×2 (08:43→21:08)
[2021-05-04] MEDS: [UNRECOGNIZED DRUG - OTHER] PO SCH ×2 (08:45→21:08)
[2021-05-04] MEDS ORDERED: Bumetanide IV 0.25 MG/ML 4 ml VIAL (1 mg) SLOW PUSH ONE (09:20)
[2021-05-04 12:23] LABS: Magnesium 1.7 mg/dL (1.9-2.7); Potassium 4.1 mmol/L (3.5-5.0)
[2021-05-04] MEDS: Potassium Chlor 20 meq TAB.ER PO SCH (13:30)
[2021-05-04] MEDS: Bumetanide IV 0.25 MG/ML 4 ml VIAL (1 mg) SLOW PUSH SCH (13:31)
[2021-05-04] MEDS ORDERED: Magnesium Sulfate IV 3 GM in NS 0.9% 100 ml BAG 100 ML IVPB ONE (20:04)
[2021-05-04] MEDS: Calcium Carb (TUMS) 500 mg CHEW TAB PO PRN (21:46)
[2021-05-05] MEDS: Ampicillin ADVAN 2 GM in NS 0.9% 100 ml BAG 100 ML IVPB SCH ×7 (00:20→23:59)
[2021-05-05 06:03] LABS: Hematocrit 24 % (42-52); Mean Corpuscular HGB Conc 33 g/dL (31-36); Mean Corpuscular Hemoglobin 33 pg (27-31); Mean Corpuscular Volume 98 fL (80-94); Mean Platelet Volume 7.2 fL (7.4-10.4); Platelet Count 333 10^3/uL (150-450); Red Blood Count 2.46 10^6 /uL (4.18-5.48); Red Cell Distribution Width 15 % (10-15); White Blood Count 9.3 10^3/uL (3.5-10.8)
[2021-05-05 06:19] LABS: Calcium 7.8 mg/dL (8.6-10.3); Phosphorus 2.1 mg/dL (2.5-5.0); Potassium 3.8 mmol/L (3.5-5.0)
[2021-05-05] MEDS ORDERED: Potassium Phosphate IV 15 MMOLE in NS 0.9% 250 ml 250 ML IVPB ONE (07:35)
[2021-05-05] MEDS: [UNRECOGNIZED DRUG - OTHER] PO SCH ×2 (08:06→21:07)
[2021-05-05] MEDS: Bumetanide IV 0.25 MG/ML 4 ml VIAL (1 mg) SLOW PUSH SCH ×2 (08:06→14:25)
[2021-05-05] MEDS: Magnesium Hydroxide LIQ 30 ML UDC PO SCH ×2 (08:07→21:09)
[2021-05-05] MEDS: PTO: Mirabegron 50 mg ER TAB (NF) PO SCH (08:12)
[2021-05-05] MEDS: cefTRIAXone 2 GM ADDV.VIAL 2 GM in NS 0.9% 100 ml BAG 100 ML IV SCH ×2 (10:05→21:04)
[2021-05-05] MEDS ORDERED: Calcium Carb (TUMS) 500 mg CHEW TAB PO PRN (19:10)
[2021-05-06] MEDS: Ampicillin ADVAN 2 GM in NS 0.9% 100 ml BAG 100 ML IVPB SCH ×5 (05:00→19:36)
[2021-05-06 05:49] LABS: Hematocrit 24 % (42-52); Mean Corpuscular HGB Conc 34 g/dL (31-36); Mean Corpuscular Hemoglobin 33 pg (27-31); Mean Corpuscular Volume 99 fL (80-94); Mean Platelet Volume 7.2 fL (7.4-10.4); Platelet Count 313 10^3/uL (150-450); Red Blood Count 2.42 10^6 /uL (4.18-5.48); Red Cell Distribution Width 15 % (10-15); White Blood Count 7.3 10^3/uL (3.5-10.8)
[2021-05-06 06:03] LABS: Calcium 7.8 mg/dL (8.6-10.3); Magnesium 1.7 mg/dL (1.9-2.7); Phosphorus 2.6 mg/dL (2.5-5.0); Potassium 3.7 mmol/L (3.5-5.0)
[2021-05-06] MEDS ORDERED: Magnesium Sulfate IV 3 GM in NS 0.9% 100 ml BAG 100 ML IVPB ONE (08:00)
[2021-05-06] MEDS: Bumetanide IV 0.25 MG/ML 4 ml VIAL (1 mg) SLOW PUSH SCH ×2 (08:03→15:02)
[2021-05-06] MEDS: Magnesium Hydroxide LIQ 30 ML UDC PO SCH ×2 (08:10→20:24)
[2021-05-06] MEDS: PTO: Mirabegron 50 mg ER TAB (NF) PO SCH (08:10)
[2021-05-06] MEDS: [UNRECOGNIZED DRUG - OTHER] PO SCH ×2 (09:33→20:38)
[2021-05-06] MEDS: cefTRIAXone 2 GM ADDV.VIAL 2 GM in NS 0.9% 100 ml BAG 100 ML IV SCH ×2 (09:33→20:30)
[2021-05-06] MEDS ORDERED: Benzocaine/Menthol LOZ PO PRN (21:08)
[2021-05-07] MEDS: Ampicillin ADVAN 2 GM in NS 0.9% 100 ml BAG 100 ML IVPB SCH ×7 (00:32→23:25)
[2021-05-07 05:27] LABS: Hematocrit 24 % (42-52); Mean Corpuscular HGB Conc 34 g/dL (31-36); Mean Corpuscular Hemoglobin 33 pg (27-31); Mean Corpuscular Volume 97 fL (80-94); Platelet Count 307 10^3/uL (150-450); Red Blood Count 2.46 10^6 /uL (4.18-5.48); Red Cell Distribution Width 15 % (10-15); White Blood Count 7.9 10^3/uL (3.5-10.8)
[2021-05-07 05:46] LABS: Calcium 7.8 mg/dL (8.6-10.3); Magnesium 1.9 mg/dL (1.9-2.7); Potassium 3.5 mmol/L (3.5-5.0)
[2021-05-07] MEDS ORDERED: Magnesium Sulfate 2 gm BAG 2 GM/50 ML BAG IVPB ONE (07:17)
[2021-05-07] MEDS: Magnesium Hydroxide LIQ 30 ML UDC PO SCH ×2 (08:04→20:50)
[2021-05-07] MEDS: [UNRECOGNIZED DRUG - OTHER] PO SCH ×2 (08:07→21:25)
[2021-05-07] MEDS ORDERED: Calcium Carb (TUMS) 500 mg CHEW TAB PO PRN (08:08)
[2021-05-07] MEDS: cefTRIAXone 2 GM ADDV.VIAL 2 GM in NS 0.9% 100 ml BAG 100 ML IV SCH ×2 (08:09→20:49)
[2021-05-07] MEDS: PTO: Mirabegron 50 mg ER TAB (NF) PO SCH (08:09)
[2021-05-07] MEDS: Bumetanide IV 0.25 MG/ML 4 ml VIAL (1 mg) SLOW PUSH SCH ×2 (08:10→15:01)
[2021-05-07] MEDS ORDERED: Potassium Chlor 20 meq TAB.ER PO ONE (08:12)
[2021-05-07 08:22] LABS: C Reactive Protein 12.08 mg/L (<8.01)
[2021-05-08] MEDS: Ampicillin ADVAN 2 GM in NS 0.9% 100 ml BAG 100 ML IVPB SCH ×4 (04:10→15:54)
[2021-05-08 07:13] LABS: Hematocrit 23 % (42-52); Hemoglobin 7.8 g/dL (14.0-18.0); Mean Corpuscular HGB Conc 33 g/dL (31-36); Mean Corpuscular Hemoglobin 33 pg (27-31); Mean Corpuscular Volume 98 fL (80-94); Mean Platelet Volume 7.4 fL (7.4-10.4); Platelet Count 277 10^3/uL (150-450); Red Blood Count 2.38 10^6 /uL (4.18-5.48); Red Cell Distribution Width 15 % (10-15); White Blood Count 6.6 10^3/uL (3.5-10.8)
[2021-05-08] MEDS ORDERED: Bismuth Subsalicylate (BTL) 525 MG/30 ML (BULK BTL) PO PRN (07:34)
[2021-05-08] MEDS ORDERED: Calcium Carb (TUMS) 500 mg CHEW TAB PO PRN (07:36)
[2021-05-08] MEDS ORDERED: Potassium Chlor 20 meq TAB.ER PO SCH (09:00)
[2021-05-08] MEDS: cefTRIAXone 2 GM ADDV.VIAL 2 GM in NS 0.9% 100 ml BAG 100 ML IV SCH (10:02)
[2021-05-08] MEDS: Bumetanide IV 0.25 MG/ML 4 ml VIAL (1 mg) SLOW PUSH SCH ×2 (10:03→15:54)
[2021-05-08] MEDS: PTO: Mirabegron 50 mg ER TAB (NF) PO SCH (10:04)
[2021-05-08] MEDS: Magnesium Hydroxide LIQ 30 ML UDC PO SCH (10:04)
[2021-05-08 10:54] LABS: % Iron Saturation 15 % (15-55); Iron 46 ug/dL (50-212); Total Iron Binding Capacity 309 mcg/dL (250-450); Transferrin 221 mg/dL (203-362); Unsaturated Iron Binding < 294 ug/dL
[2021-05-08 11:02] LABS: Anion Gap 5 mmol/L (2-11); Blood Urea Nitrogen 23 mg/dL (6-24); CO2 Carbon Dioxide 31 mmol/L (22-32); Calcium 8.2 mg/dL (8.6-10.3); Chloride 99 mmol/L (101-111); Glucose 156 mg/dL (70-100); Potassium 3.6 mmol/L (3.5-5.0); Sodium 135 mmol/L (135-145)
[2021-05-08 11:12] LABS: Ferritin 121.4 ng/mL (24-336)
[2021-05-08] MEDS ORDERED: COVID-19 VACCINE, MRNA(PFIZER)/PF 30 MCG/0.3 ML IM ONE (13:16)
[2021-05-08] MEDS ORDERED: COVID-19 VACCINE, MRNA(MODERNA)/PF 100 MCG/0.5 ML IM ONE (14:00)
[2021-05-08 16:52] VITALS: BP 104/61
== END 2021-05-08 18:20 | disposition home health service (06) | DRG 811 ==
LOC: ED 18:24 → SSU 22:21 → SUATTDRO 22:21 → SSU 04-22 00:20
PROVIDERS: ADMIT Internal Medicine; ATTEND Hospitalist

== ENCOUNTER 2023-10-23 11:16 | Observation (INO) ==
[2023-10-23 12:16] LABS: Urine Appearance Clear; Urine Bilirubin Negative (Negative); Urine Blood Negative (Negative); Urine Color Colorless; Urine Glucose Negative (Negative); Urine Ketones Negative (Negative); Urine Nitrite Negative (Negative); Urine Protein Negative (Negative); Urine Specific Gravity 1.008 (1.002-1.030); Urine Urobilinogen Negative (Negative); Urine pH 5.5 (5.0-8.0)
[2023-10-23 12:27] LABS: Urine Bacteria Absent /HPF (Absent); Urine Red Blood Cell Trace(0-2/hpf) /HPF (0-Trace); Urine White Blood Cell 1+(6-10/hpf) /HPF (0-Trace)
[2023-10-23 12:36] LABS: ABS Lymphocytes 0.4 10^3/uL (1.0-4.8); ABS Monocytes 0.9 10^3/uL (0.0-1.1); ABS Neutrophils 3.9 10^3/uL (1.5-7.6); Eosinophil % 0.3 %; Hematocrit 26.5 % (38-53); Hemoglobin 8.7 g/dL (13.2-16.3); Lymphocyte % 7.2 %; Mean Corpuscular Hemoglobin 31.7 pg (27-33); Mean Corpuscular Hgb Conc 32.8 g/dL (31-36); Mean Corpuscular Volume 96.7 fL (80-97); Nucleated Red Blood Cells % 0.1 %/100WBC (0.0-0.8); Platelet Count 172 10^3/uL (150-450); Red Blood Count 2.74 10^6/uL (4.06-5.63); Red Cell Distribution Width 13.7 % (12-17); White Blood Count 5.3 10^3/uL (3.6-10.2)
[2023-10-23 12:59] LABS: Albumin 4.2 g/dL (3.2-5.2); C Reactive Protein 1.08 mg/L (<8.01); Calcium 9.7 mg/dL (8.6-10.3); Creatinine, Serum 1.81 mg/dL (0.67-1.17); Globulin 2.1 g/dL (2-4); Potassium 4.3 mmol/L (3.5-5.0); Total Bilirubin 0.5 mg/dL (0.2-1.0); Total Protein 6.3 g/dL (6.4-8.9); eGFR CKD-EPI 35.3 (>60)
[2023-10-23 14:08] LABS: Albumin 4.1 g/dL (3.2-5.2); Calcium 9.7 mg/dL (8.6-10.3); Creatinine, Serum 1.78 mg/dL (0.67-1.17); Globulin 2.1 g/dL (2-4); Potassium 4.3 mmol/L (3.5-5.0); Total Bilirubin 0.5 mg/dL (0.2-1.0); Total Protein 6.2 g/dL (6.4-8.9)
[2023-10-23 15:02] LABS: High Sensitivity Troponin 1 Hr 28 pg/mL (<20)
[2023-10-23] MEDS: Furosemide 40 mg/4 ml IV VIAL IV SLOW PU ONE (16:41)
[2023-10-23 17:14] LABS: TSH Ultra Thyroid Stim Horm 1.7 mcIU/mL (0.34-5.60)
[2023-10-23] MEDS: CMCS:Pravastatin 20 mg TAB (NF) PO SCH (22:17)
[2023-10-23] MEDS: NF:Multivitamins/Minera Areds(NF) CAP PO SCH (22:19)
[2023-10-23 22:22] LABS: Ferritin 27.4 ng/mL (24-336)
[2023-10-24] MEDS: Cholecalciferol (VIT D3) 1,000 unit TAB PO SCH (09:03)
[2023-10-24] MEDS: Aspirin EC 81 mg TAB.EC (enteric coated) PO SCH (09:03)
[2023-10-24] MEDS: Furosemide 40 mg/4 ml IV VIAL IV ONE ×2 (09:37→16:41)
[2023-10-24] MEDS ORDERED: Senna TAB 8.6 mg TAB PO PRN (12:02)
[2023-10-24] MEDS ORDERED: Polyethylene Glycol 3350 17 GM PACKET PO PRN (12:02)
[2023-10-24] MEDS: Polyethylene Glycol 3350 17 GM PACKET PO ONE (13:19)
[2023-10-24 19:14] LABS: Calcium 9.7 mg/dL (8.6-10.3); Creatinine, Serum 1.55 mg/dL (0.67-1.17); eGFR CKD-EPI 42.5 (>60)
[2023-10-24 21:09] LABS: Magnesium 2.3 mg/dL (1.9-2.7)
[2023-10-24 21:22] LABS: ABS Basophils 0.1 10^3/uL (0.0-0.1); ABS Eosinophils 0.1 10^3/uL (0.0-0.5); ABS Lymphocytes 0.6 10^3/uL (1.0-4.8); ABS Neutrophils 5.2 10^3/uL (1.5-7.6); ABS Nucleated RBC 0.01 10^3/ul; Eosinophil % 0.9 %; Hemoglobin 8.8 g/dL (13.2-16.3); Lymphocyte % 8.9 %; Mean Corpuscular Hemoglobin 31.6 pg (27-33); Mean Corpuscular Hgb Conc 32.5 g/dL (31-36); Mean Platelet Volume 8.1 fL (7.5-11.2); Nucleated Red Blood Cells % 0.1 %/100WBC (0.0-0.8); Platelet Count 160 10^3/uL (150-450); Red Blood Count 2.78 10^6/uL (4.06-5.63)
[2023-10-25 06:53] LABS: ABS Basophils 0.1 10^3/uL (0.0-0.1); ABS Eosinophils 0.2 10^3/uL (0.0-0.5); ABS Lymphocytes 0.6 10^3/uL (1.0-4.8); ABS Monocytes 1.2 10^3/uL (0.0-1.1); ABS Neutrophils 4.8 10^3/uL (1.5-7.6); ABS Nucleated RBC 0.01 10^3/ul; Eosinophil % 3.1 %; Hematocrit 24.9 % (38-53); Hemoglobin 8.2 g/dL (13.2-16.3); Lymphocyte % 8.3 %; Mean Corpuscular Hemoglobin 31.5 pg (27-33); Mean Corpuscular Hgb Conc 32.9 g/dL (31-36); Mean Corpuscular Volume 95.7 fL (80-97); Mean Platelet Volume 7.9 fL (7.5-11.2); Nucleated Red Blood Cells % 0.1 %/100WBC (0.0-0.8); Platelet Count 146 10^3/uL (150-450); Red Cell Distribution Width 14.2 % (12-17); White Blood Count 6.8 10^3/uL (3.6-10.2)
[2023-10-25 07:17] LABS: Creatinine, Serum 1.5 mg/dL (0.67-1.17); Magnesium 2.3 mg/dL (1.9-2.7); Potassium 4.1 mmol/L (3.5-5.0); eGFR CKD-EPI 44.2 (>60)
[2023-10-25 09:50] VITALS: BP 126/83
== END 2023-10-25 12:30 | disposition home or self-care (01) ==
LOC: ED 11:16 → EDHOLD 11:16 → SUATTDRO 16:18 → MED 19:23
PROVIDERS: ADMIT Student in an Organized Health Care Education/Training Program; ATTEND Internal Medicine

== ENCOUNTER 2023-12-04 07:14 | Inpatient (IN) ==
[2023-12-04 07:54] LABS: ABS Lymphocytes 0.3 10^3/uL (1.0-4.8); ABS Monocytes 1.3 10^3/uL (0.0-1.1); ABS Neutrophils 6.8 10^3/uL (1.5-7.6); ABS Nucleated RBC 0.03 10^3/ul; Hematocrit 25.3 % (38-53); Hemoglobin 8.1 g/dL (13.2-16.3); Lymphocyte % 3.4 %; Mean Corpuscular Hemoglobin 27.9 pg (27-33); Mean Corpuscular Hgb Conc 31.9 g/dL (31-36); Mean Corpuscular Volume 87.4 fL (80-97); Mean Platelet Volume 9.5 fL (7.5-11.2); Nucleated Red Blood Cells % 0.3 %/100WBC (0.0-0.8); Platelet Count 134 10^3/uL (150-450); Red Blood Count 2.89 10^6/uL (4.06-5.63); Red Cell Distribution Width 15.9 % (12-17); White Blood Count 8.4 10^3/uL (3.6-10.2)
[2023-12-04 08:15] LABS: Activated Partial Thrombo Time 40.2 seconds (26.0-38.0); INR 1.72 (0.83-1.13)
[2023-12-04 08:36] LABS: Calcium 8.8 mg/dL (8.6-10.3); Creatinine, Serum 2.16 mg/dL (0.67-1.17); eGFR CKD-EPI 28.6 (>60)
[2023-12-04 08:44] LABS: Albumin 3.8 g/dL (3.2-5.2); Albumin/Globulin Ratio 1.7 (1-3); Globulin 2.2 g/dL (2-4); Total Bilirubin 0.8 mg/dL (0.2-1.0)
[2023-12-04] MEDS: Ondansetron 4 mg VIAL 2 MG/ML 2 ml VIAL IV ONE (10:31)
[2023-12-04] MEDS: Acetaminophen IV 1 GM/100ML 1,000 MG/100 ML BAG IV ONE (10:31)
[2023-12-04 11:06] LABS: Urine Appearance Clear; Urine Bilirubin Negative (Negative); Urine Blood 1+ (Negative); Urine Color Light-Yellow; Urine Glucose Negative (Negative); Urine Ketones Negative (Negative); Urine Nitrite 1+ (Negative); Urine Protein Negative (Negative); Urine Specific Gravity 1.013 (1.002-1.030); Urine Urobilinogen Negative (Negative); Urine pH 6.5 (5.0-8.0)
[2023-12-04 11:08] LABS: Urine Bacteria 1+ /HPF (Absent); Urine Red Blood Cell 3+(>10/hpf) /HPF (0-Trace); Urine Squamous Epithelial Cell Present /HPF (Absent); Urine White Blood Cell Trace(0-5/hpf) /HPF (0-Trace)
[2023-12-04] MEDS: Lactated Ringers 1000 ml BAG 1,000 ML IV ONE (14:42)
[2023-12-04] MEDS: Potassium Chlor 20 meq TAB.ER PO ONE ×2 (15:25→18:24)
[2023-12-04 17:12] LABS: Hematocrit 23.6 % (38-53); Hemoglobin 7.4 g/dL (13.2-16.3); Mean Corpuscular Hemoglobin 27.1 pg (27-33); Mean Corpuscular Hgb Conc 31.3 g/dL (31-36); Mean Corpuscular Volume 86.8 fL (80-97); Mean Platelet Volume 8.9 fL (7.5-11.2); Platelet Count 120 10^3/uL (150-450); Red Blood Count 2.72 10^6/uL (4.06-5.63); Red Cell Distribution Width 16.3 % (12-17); White Blood Count 8.7 10^3/uL (3.6-10.2)
[2023-12-04 18:18] LABS: Activated Partial Thrombo Time 36.7 seconds (26.0-38.0); INR 1.62 (0.83-1.13)
[2023-12-04 18:53] LABS: Blood Urea Nitrogen 87 mg/dL (6-24); Creatinine, Serum 1.93 mg/dL (0.67-1.17); Iron < 20 ug/dL (50-212); eGFR CKD-EPI 32.7 (>60)
[2023-12-04] MEDS: NS 0.9% 1000 ml BAG 1,000 ML IV SCH (19:02)
[2023-12-04 19:13] LABS: Ferritin 31.7 ng/mL (24-336)
[2023-12-04 19:25] LABS: Vitamin B12 > 1450 pg/mL (180-914)
[2023-12-04 19:25] LABS: Calcium 7.9 mg/dL (8.6-10.3); Creatinine, Serum 1.86 mg/dL (0.67-1.17); Magnesium 3.1 mg/dL (1.9-2.7); Phosphorus 4.6 mg/dL (2.5-5.0); Potassium 2.8 mmol/L (3.5-5.0); eGFR CKD-EPI 34.2 (>60)
[2023-12-04 19:26] LABS: Folate 10.02 ng/mL (5.90-24.80)
[2023-12-04] MEDS: CMCS: Pravastatin 20 mg TAB (NF) PO SCH (21:41)
[2023-12-04] MEDS: Heparin 5000 UNITS/ML 1 mL VIAL SUBCUT SCH (22:06)
[2023-12-04 22:22] LABS: ABS Lymphocytes 0.3 10^3/uL (1.0-4.8); ABS Monocytes 1.2 10^3/uL (0.0-1.1); ABS Neutrophils 7.2 10^3/uL (1.5-7.6); ABS Nucleated RBC 0.03 10^3/ul; Eosinophil % 0.3 %; Nucleated Red Blood Cells % 0.3 %/100WBC (0.0-0.8)
[2023-12-05] MEDS: Potassium Chlor 20 meq TAB.ER PO ONE (03:37)
[2023-12-05 03:54] LABS: Hematocrit 25.4 % (38-53)
[2023-12-05 06:41] LABS: Hematocrit 26.4 % (38-53); Hemoglobin 8.1 g/dL (13.2-16.3); Mean Corpuscular Hemoglobin 26.6 pg (27-33); Mean Corpuscular Hgb Conc 30.7 g/dL (31-36); Mean Corpuscular Volume 86.8 fL (80-97); Mean Platelet Volume 9.3 fL (7.5-11.2); Platelet Count 135 10^3/uL (150-450); Red Blood Count 3.05 10^6/uL (4.06-5.63); Red Cell Distribution Width 15.9 % (12-17); White Blood Count 12.6 10^3/uL (3.6-10.2)
[2023-12-05 07:40] LABS: Calcium 8.3 mg/dL (8.6-10.3); Creatinine, Serum 1.51 mg/dL (0.67-1.17); Magnesium 3.1 mg/dL (1.9-2.7); Phosphorus 3.8 mg/dL (2.5-5.0); Potassium 3.2 mmol/L (3.5-5.0); eGFR CKD-EPI 43.9 (>60)
[2023-12-05] MEDS: Potassium Chloride LIQUID 20 MEQ/15 ML LIQUID PO ONE (09:25)
[2023-12-05] MEDS: Heparin 5000 UNITS/ML 1 mL VIAL SUBCUT SCH (09:30)
[2023-12-05] MEDS: cefTRIAXone 1 gm/50 mL D5W 1 GM/50 ML BAG IV SCH (14:17)
[2023-12-05 14:35] LABS: Hematocrit 27.6 % (38-53); Hemoglobin 8.5 g/dL (13.2-16.3); Mean Corpuscular Hemoglobin 26.9 pg (27-33); Mean Corpuscular Hgb Conc 30.7 g/dL (31-36); Mean Corpuscular Volume 87.6 fL (80-97); Mean Platelet Volume 9.1 fL (7.5-11.2); Platelet Count 143 10^3/uL (150-450); Red Blood Count 3.15 10^6/uL (4.06-5.63); Red Cell Distribution Width 16.2 % (12-17); White Blood Count 14.3 10^3/uL (3.6-10.2)
[2023-12-05 15:25] LABS: Calcium 8.5 mg/dL (8.6-10.3); Creatinine, Serum 1.45 mg/dL (0.67-1.17); Magnesium 3.2 mg/dL (1.9-2.7); Phosphorus 3.4 mg/dL (2.5-5.0); Potassium 3.9 mmol/L (3.5-5.0); eGFR CKD-EPI 46.1 (>60)
[2023-12-05] MEDS: Furosemide 20 mg/2 ml IV VIAL IV SCH (16:48)
[2023-12-05] MEDS: Ferric Gluconate IV 250 MG in NS 0.9% 250 ml 200 ML IVPB SCH (16:49)
[2023-12-05] MEDS: Sulfur Hexaflouride MICROSPHR 25 MG VIAL IV ONE (17:42)
[2023-12-06 07:11] LABS: Hematocrit 26.9 % (38-53); Hemoglobin 8.4 g/dL (13.2-16.3); Mean Corpuscular Hemoglobin 27.1 pg (27-33); Mean Corpuscular Hgb Conc 31.1 g/dL (31-36); Mean Corpuscular Volume 87.2 fL (80-97); Mean Platelet Volume 9.3 fL (7.5-11.2); Platelet Count 124 10^3/uL (150-450); Red Blood Count 3.08 10^6/uL (4.06-5.63); Red Cell Distribution Width 15.7 % (12-17); White Blood Count 12.8 10^3/uL (3.6-10.2)
[2023-12-06 09:12] LABS: Calcium 8.4 mg/dL (8.6-10.3); Creatinine, Serum 1.35 mg/dL (0.67-1.17); Magnesium 3.1 mg/dL (1.9-2.7); Potassium 3.9 mmol/L (3.5-5.0); eGFR CKD-EPI 50.2 (>60)
[2023-12-06] MEDS ORDERED: Meropenem 1 GM PREMIX(*) 1 GM/50 ML BAG IV SCH (11:30)
[2023-12-06] MEDS ORDERED: Zosyn per Pharmacy NOTE FOLLOW UP SCH (12:00)
[2023-12-06] MEDS: ZOSYN 3.375 GM x ONE DOSE over 30 miuntes IV (15:16)
[2023-12-06] MEDS: Ferric Gluconate IV 250 MG in NS 0.9% 250 ml 200 ML IVPB SCH (17:29)
[2023-12-06] MEDS: Neomycin/Polym/Bacit TOP OINT 15 GM TOPICAL SCH (20:57)
[2023-12-06] MEDS: ZOSYN 3.375 GM Q8H per EXTENDED INFUSION IV SCH (20:59)
[2023-12-07 09:10] LABS: Hematocrit 27.4 % (38-53); Hemoglobin 8.6 g/dL (13.2-16.3); Mean Corpuscular Hemoglobin 27.4 pg (27-33); Mean Corpuscular Hgb Conc 31.5 g/dL (31-36); Mean Platelet Volume 9.2 fL (7.5-11.2); Platelet Count 152 10^3/uL (150-450); Red Blood Count 3.15 10^6/uL (4.06-5.63); Red Cell Distribution Width 15.7 % (12-17); White Blood Count 11.7 10^3/uL (3.6-10.2)
[2023-12-07 09:43] LABS: Calcium 8.1 mg/dL (8.6-10.3); Creatinine, Serum 1.3 mg/dL (0.67-1.17); Magnesium 2.9 mg/dL (1.9-2.7); Potassium 3.5 mmol/L (3.5-5.0); eGFR CKD-EPI 52.5 (>60)
[2023-12-07] MEDS ORDERED: Magnesium Hydroxide LIQ 30 ML UDC PO PRN (10:25)
[2023-12-07 10:49] LABS: ABS Eosinophils 0.2 10^3/uL (0.0-0.5); ABS Lymphocytes 0.5 10^3/uL (1.0-4.8); ABS Monocytes 1.7 10^3/uL (0.0-1.1); ABS Neutrophils 9.3 10^3/uL (1.5-7.6); ABS Nucleated RBC 0.12 10^3/ul; Eosinophil % 1.4 %; Lymphocyte % 4.4 %
[2023-12-07] MEDS ORDERED: Magnesium Hydroxide LIQ 30 ML UDC PO SCH (11:00)
[2023-12-07] MEDS: Potassium Chloride LIQUID 20 MEQ/15 ML LIQUID PO ONE (12:06)
[2023-12-07] MEDS: Polyethylene Glycol 3350 17 GM PACKET PO SCH (12:06)
[2023-12-07] MEDS: Senna TAB 8.6 mg TAB PO SCH (20:53)
[2023-12-08] MEDS: PTO:Multivitamins/Mins AREDS2 (NF) CAP PO SCH ×2 (03:22→08:05)
[2023-12-08 06:08] LABS: Hematocrit 25.8 % (38-53); Hemoglobin 8.3 g/dL (13.2-16.3); Mean Corpuscular Hemoglobin 27.7 pg (27-33); Mean Corpuscular Hgb Conc 32.1 g/dL (31-36); Mean Corpuscular Volume 86.2 fL (80-97); Mean Platelet Volume 8.6 fL (7.5-11.2); Platelet Count 138 10^3/uL (150-450); Red Cell Distribution Width 16.3 % (12-17); White Blood Count 8.3 10^3/uL (3.6-10.2)
[2023-12-08 06:39] LABS: Calcium 7.9 mg/dL (8.6-10.3); Creatinine, Serum 1.25 mg/dL (0.67-1.17); Magnesium 2.6 mg/dL (1.9-2.7); Potassium 3.4 mmol/L (3.5-5.0)
[2023-12-08] MEDS: Potassium Chlor 20 meq TAB.ER PO ONE (08:05)
[2023-12-09] MEDS: Lidocaine 1% MPF 2 ML VIAL SUBCUT ONE (04:35)
[2023-12-09 08:24] LABS: Hemoglobin 8.9 g/dL (13.2-16.3); Mean Corpuscular Hemoglobin 27.4 pg (27-33); Mean Corpuscular Hgb Conc 31.7 g/dL (31-36); Mean Corpuscular Volume 86.5 fL (80-97); Mean Platelet Volume 8.7 fL (7.5-11.2); Platelet Count 160 10^3/uL (150-450); Red Blood Count 3.24 10^6/uL (4.06-5.63); Red Cell Distribution Width 16.3 % (12-17); White Blood Count 7.8 10^3/uL (3.6-10.2)
[2023-12-09 08:49] LABS: Calcium 8.3 mg/dL (8.6-10.3); Creatinine, Serum 1.19 mg/dL (0.67-1.17); Magnesium 2.5 mg/dL (1.9-2.7); eGFR CKD-EPI 58.4 (>60)
[2023-12-09] MEDS: Sulfur Hexaflouride MICROSPHR 25 MG VIAL IV ONE (14:23)
[2023-12-09 20:54] LABS: Hematocrit 29.3 % (38-53); Hemoglobin 8.9 g/dL (13.2-16.3)
[2023-12-10 05:25] LABS: Hematocrit 27.9 % (38-53); Hemoglobin 8.8 g/dL (13.2-16.3); Mean Corpuscular Hemoglobin 27.1 pg (27-33); Mean Corpuscular Hgb Conc 31.5 g/dL (31-36); Mean Corpuscular Volume 86.2 fL (80-97); Mean Platelet Volume 8.6 fL (7.5-11.2); Platelet Count 163 10^3/uL (150-450); Red Blood Count 3.23 10^6/uL (4.06-5.63); Red Cell Distribution Width 16.5 % (12-17)
[2023-12-10 06:05] LABS: Calcium 8.4 mg/dL (8.6-10.3); Creatinine, Serum 1.14 mg/dL (0.67-1.17); Magnesium 2.3 mg/dL (1.9-2.7); Potassium 4.1 mmol/L (3.5-5.0); eGFR CKD-EPI 61.5 (>60)
[2023-12-11 06:02] LABS: Hematocrit 26.3 % (38-53); Hemoglobin 8.3 g/dL (13.2-16.3); Mean Corpuscular Hemoglobin 27.4 pg (27-33); Mean Corpuscular Hgb Conc 31.6 g/dL (31-36); Mean Corpuscular Volume 86.7 fL (80-97); Mean Platelet Volume 8.7 fL (7.5-11.2); Platelet Count 147 10^3/uL (150-450); Red Blood Count 3.04 10^6/uL (4.06-5.63); Red Cell Distribution Width 17.1 % (12-17); White Blood Count 6.4 10^3/uL (3.6-10.2)
[2023-12-11 06:31] LABS: Calcium 8.2 mg/dL (8.6-10.3); Creatinine, Serum 1.12 mg/dL (0.67-1.17); Magnesium 2.1 mg/dL (1.9-2.7); eGFR CKD-EPI 62.8 (>60)
[2023-12-11 11:30] LABS: Hematocrit 27.7 % (38-53); Hemoglobin 8.8 g/dL (13.2-16.3)
[2023-12-11 14:13] VITALS: BP 120/70
== END 2023-12-11 15:25 | disposition home or self-care (01) | DRG 391 ==
LOC: ED 07:14 → EDHOLD 07:14 → OBSVTOIN 14:05 → SUATTDRO 14:05 → MED 12-05 02:25 → EDHOLD 12-05 04:04 → MEDTELE 12-05 14:27
PROVIDERS: ADMIT Internal Medicine; ATTEND Internal Medicine

== ENCOUNTER 2024-03-07 14:31 | Inpatient (IN) ==
[2024-03-07] MEDS: Lactated Ringers 1000 ml BAG IV.FLUID IV ONE ×3 (15:36→20:13)
[2024-03-07 15:43] LABS: Hematocrit 29.4 % (38-53); Hemoglobin 9.3 g/dL (13.2-16.3); Mean Corpuscular Hemoglobin 27.4 pg (27-33); Mean Corpuscular Hgb Conc 31.6 g/dL (31-36); Mean Corpuscular Volume 86.7 fL (80-97); Mean Platelet Volume 8.7 fL (7.5-11.2); Platelet Count 109 10^3/uL (150-450); Red Blood Count 3.39 10^6/uL (4.06-5.63); Red Cell Distribution Width 22.7 % (12-17); White Blood Count 6.6 10^3/uL (3.6-10.2)
[2024-03-07 15:49] LABS: INR 2.19 (0.85-1.14)
[2024-03-07] MEDS: Piperacillin/Tazobac 3.375 BAG 3.375 GM/100 ML BAG IV ONE (16:27)
[2024-03-07 16:29] LABS: Albumin 2.7 g/dL (3.2-5.2); Albumin/Globulin Ratio 1.3 (1-3); C Reactive Protein 226.35 mg/L (<8.01); Calcium 8.2 mg/dL (8.6-10.3); Creatinine, Serum 2.08 mg/dL (0.67-1.17); Globulin 2.1 g/dL (2-4); Magnesium 2.4 mg/dL (1.9-2.7); Potassium 4.6 mmol/L (3.5-5.0); Total Bilirubin 0.9 mg/dL (0.2-1.0); Total Protein 4.8 g/dL (6.4-8.9); eGFR CKD-EPI 29.9 (>60)
[2024-03-07] MEDS: Ondansetron 4 mg VIAL 2 MG/ML 2 ml VIAL IV ONE (16:55)
[2024-03-07] MEDS: Dextrose 50% Syringe 50 ml 25 GM/50 ML SYRINGE IV PUSH ONE (16:58)
[2024-03-07] MEDS ORDERED: Morphine 4 MG/ML VIAL (1 ml) ONE (17:04)
[2024-03-07] MEDS: Morphine 4 MG/ML VIAL (1 ml) IV ONE (17:10)
[2024-03-07 17:17] LABS: ABS Lymphocytes 0.2 10^3/uL (1.0-4.8); ABS Monocytes 0.1 10^3/uL (0.0-1.1); ABS Neutrophils 6.2 10^3/uL (1.5-7.6); ABS Nucleated RBC 0.03 10^3/ul; Anisocytosis 2+; Eosinophil % 0.1 %; Lymphocyte % 3.3 %; Nucleated Red Blood Cells % 0.4 %/100WBC (0.0-0.8)
[2024-03-07 18:10] LABS: High Sensitivity Troponin 1 Hr 27 pg/mL (<20)
[2024-03-07] MEDS: Norepinephrine 4 MG/250mL D5W 4,000 MCG/250 ML BAG IV SCH (18:23)
[2024-03-07 21:44] LABS: Urine Appearance Turbid; Urine Bilirubin Negative (Negative); Urine Blood 3+ (Negative); Urine Color Yellow; Urine Glucose Negative (Negative); Urine Ketones Negative (Negative); Urine Nitrite Negative (Negative); Urine Protein 1+ (>=30 mg/dL) (Negative); Urine Specific Gravity 1.016 (1.002-1.030); Urine Urobilinogen Negative (Negative); Urine pH 5.5 (5.0-8.0)
[2024-03-07 21:51] LABS: Urine Bacteria Absent /HPF (Absent); Urine Red Blood Cell 3+(>10/hpf) /HPF (0-Trace); Urine Squamous Epithelial Cell Present /HPF (Absent); Urine White Blood Cell Trace(0-5/hpf) /HPF (0-Trace)
[2024-03-07] MEDS: D5NS 0.9% 1000 ml BAG 1,000 ML IV SCH (22:41)
[2024-03-07] MEDS ORDERED: Piperacillin/Tazobac 3.375 BAG 3.375 GM/100 ML BAG IV SCH (23:00)
[2024-03-07] MEDS ORDERED: Zosyn per Pharmacy NOTE FOLLOW UP SCH (23:00)
[2024-03-08] MEDS: Meropenem 1 GM PREMIX(*) 1 GM/50 ML BAG IV SCH ×2 (00:29→00:31)
[2024-03-08] MEDS: Norepinephrine 4 MG/250mL D5W 4,000 MCG/250 ML BAG IV ONE (00:35)
[2024-03-08] MEDS: Lactated Ringers 1000 ml BAG 1,000 ML IV SCH (00:46)
[2024-03-08] MEDS: Lactated Ringers 1000 ml BAG 500 ML IV ONE (00:46)
[2024-03-08] MEDS: Acetaminophen IV 1 GM/100ML 1,000 MG/100 ML BAG IV ONE (02:05)
[2024-03-08] MEDS: Acetaminophen IV 1 GM/100ML 1,000 MG/100 ML BAG IV PRN (02:05)
[2024-03-08 04:20] LABS: Hematocrit 30.5 % (38-53); Hemoglobin 9.8 g/dL (13.2-16.3); Mean Corpuscular Hemoglobin 27.7 pg (27-33); Mean Corpuscular Hgb Conc 32.1 g/dL (31-36); Mean Corpuscular Volume 86.4 fL (80-97); Mean Platelet Volume 8.4 fL (7.5-11.2); Platelet Count 112 10^3/uL (150-450); Red Blood Count 3.53 10^6/uL (4.06-5.63); Red Cell Distribution Width 22.5 % (12-17); White Blood Count 13.2 10^3/uL (3.6-10.2)
[2024-03-08 04:44] LABS: ABS Eosinophils 0.1 10^3/uL (0.0-0.5); ABS Lymphocytes 0.4 10^3/uL (1.0-4.8); ABS Monocytes 0.3 10^3/uL (0.0-1.1); ABS Neutrophils 12.3 10^3/uL (1.5-7.6); ABS Nucleated RBC 0.02 10^3/ul; Anisocytosis 2+; Eosinophil % 0.8 %; Lymphocyte % 3.3 %; Nucleated Red Blood Cells % 0.2 %/100WBC (0.0-0.8); Polychromasia 1+
[2024-03-08 05:37] LABS: Creatinine, Serum 1.97 mg/dL (0.67-1.17); Magnesium 2.3 mg/dL (1.9-2.7); Potassium 5.1 mmol/L (3.5-5.0); eGFR CKD-EPI 31.9 (>60)
[2024-03-08 05:52] LABS: TSH Ultra Thyroid Stim Horm 2.24 mcIU/mL (0.34-5.60)
[2024-03-08] MEDS: Hydrocortisone INJ 100 MG/2ML 2 ML VIAL IV ONE (09:12)
[2024-03-08] MEDS ORDERED: Sulfur Hexaflouride MICROSPHR 25 MG VIAL IV PRN (14:36)
[2024-03-08] MEDS: Hydrocortisone INJ 100 MG/2ML 2 ML VIAL IV SCH (16:10)
[2024-03-08] MEDS: Pantoprazole VIAL 40 MG VIAL IV SCH (21:43)
[2024-03-08] MEDS: Enoxaparin 80 MG/0.8 ML SYR SUBCUT ONE (21:43)
[2024-03-08] MEDS: Pravastatin 20 mg TAB (NF) PO SCH (21:44)
[2024-03-09 04:49] LABS: ABS Lymphocytes 0.5 10^3/uL (1.0-4.8); ABS Monocytes 0.5 10^3/uL (0.0-1.1); ABS Neutrophils 12.1 10^3/uL (1.5-7.6); ABS Nucleated RBC 0.03 10^3/ul; Eosinophil % 0.1 %; Hematocrit 32.6 % (38-53); Hemoglobin 10.2 g/dL (13.2-16.3); Lymphocyte % 3.5 %; Mean Corpuscular Hemoglobin 26.9 pg (27-33); Mean Corpuscular Hgb Conc 31.2 g/dL (31-36); Mean Corpuscular Volume 86.3 fL (80-97); Mean Platelet Volume 8.6 fL (7.5-11.2); Nucleated Red Blood Cells % 0.2 %/100WBC (0.0-0.8); Platelet Count 105 10^3/uL (150-450); Red Blood Count 3.78 10^6/uL (4.06-5.63); Red Cell Distribution Width 22.7 % (12-17)
[2024-03-09 05:09] LABS: Calcium 8.2 mg/dL (8.6-10.3); Creatinine, Serum 1.75 mg/dL (0.67-1.17); Potassium 4.9 mmol/L (3.5-5.0); eGFR CKD-EPI 36.8 (>60)
[2024-03-09] MEDS: Meropenem 1 GM PREMIX(*) 1 GM/50 ML BAG IV SCH (08:24)
[2024-03-09] MEDS: Digoxin IV 0.5 MG/2 ML AMP (0.25 MG/ML) IV SLOW PU ONE (08:24)
[2024-03-09] MEDS ORDERED: Zosyn per Pharmacy NOTE FOLLOW UP SCH (09:00)
[2024-03-09] MEDS: Polyethylene Glycol 3350 17 GM PACKET PO SCH (12:28)
[2024-03-09] MEDS: Senna TAB 8.6 mg TAB PO SCH (12:28)
[2024-03-09] MEDS: ZOSYN 3.375 GM Q8H per EXTENDED INFUSION IV SCH (19:02)
[2024-03-09] MEDS: Enoxaparin 80 MG/0.8 ML SYR SUBCUT ONE (23:43)
[2024-03-10 06:29] LABS: Hematocrit 31.8 % (38-53); Hemoglobin 9.9 g/dL (13.2-16.3); Mean Corpuscular Hemoglobin 26.8 pg (27-33); Mean Corpuscular Hgb Conc 31.2 g/dL (31-36); Mean Corpuscular Volume 85.9 fL (80-97); Red Cell Distribution Width 22.8 % (12-17); White Blood Count 9.6 10^3/uL (3.6-10.2)
[2024-03-10 06:45] LABS: Calcium 8.1 mg/dL (8.6-10.3); Creatinine, Serum 1.57 mg/dL (0.67-1.17); eGFR CKD-EPI 41.9 (>60)
[2024-03-10 07:59] LABS: Acanthocytes 1+; Anisocytosis 1+; Polychromasia 1+; Target Cells 1+
[2024-03-10 08:01] LABS: ABS Lymphocytes 0.3 10^3/ul (1.0-4.8); ABS Monocytes 0.3 10^3/ul (0.0-1.1)
[2024-03-10 08:11] LABS: Mean Platelet Volume 8.8 fL (7.5-11.2); Platelet Count 83 10^3/uL (150-450)
[2024-03-10] MEDS: Hydrocortisone INJ 100 MG/2ML 2 ML VIAL IV ONE (08:38)
[2024-03-11 04:40] LABS: Hematocrit 29.9 % (38-53); Hemoglobin 9.5 g/dL (13.2-16.3); Mean Corpuscular Hemoglobin 27.3 pg (27-33); Mean Corpuscular Hgb Conc 31.8 g/dL (31-36); Mean Corpuscular Volume 85.7 fL (80-97); White Blood Count 6.9 10^3/uL (3.6-10.2)
[2024-03-11 05:24] LABS: Calcium 8.1 mg/dL (8.6-10.3); Creatinine, Serum 1.5 mg/dL (0.67-1.17); eGFR CKD-EPI 44.2 (>60)
[2024-03-11 05:38] LABS: ABS Lymphocytes 0.4 10^3/uL (1.0-4.8); ABS Monocytes 0.7 10^3/uL (0.0-1.1); ABS Neutrophils 5.8 10^3/uL (1.5-7.6); ABS Nucleated RBC 0.02 10^3/ul; Lymphocyte % 6.4 %; Mean Platelet Volume 9.7 fL (7.5-11.2); Nucleated Red Blood Cells % 0.3 %/100WBC (0.0-0.8); Platelet Count 68 10^3/uL (150-450)
[2024-03-11] MEDS: Amoxicillin/Clavul 500/125 TAB (Augmentin 500 mg tab) PO SCH (10:14)
[2024-03-11] MEDS: HYDROmorphone 1 MG/1 ML SYRINGE IV SLOW PU PRN (10:17)
[2024-03-11] MEDS: Amoxicillin SUSP ORALSYR 80 MG/ML (400 mg/5 ml) PO SCH (11:18)
[2024-03-11] MEDS: Cefepime 2 GM in Dextrose 2 GM/50 ML BAG IV SCH (11:53)
[2024-03-11] MEDS: Naloxone 0.4 mg VIAL 0.4 mg/ml 1 ml VIAL IV PUSH ONE (22:02)
[2024-03-12] MEDS: Naloxone 0.4 mg VIAL 0.4 mg/ml 1 ml VIAL IV PUSH ONE (00:01)
[2024-03-12 04:38] LABS: Hematocrit 32.9 % (38-53); Hemoglobin 10.2 g/dL (13.2-16.3); Mean Corpuscular Hemoglobin 26.9 pg (27-33); Mean Corpuscular Volume 86.8 fL (80-97); Red Blood Count 3.79 10^6/uL (4.06-5.63); Red Cell Distribution Width 22.3 % (12-17); White Blood Count 7.5 10^3/uL (3.6-10.2)
[2024-03-12 04:47] LABS: Calcium 8.5 mg/dL (8.6-10.3); Creatinine, Serum 1.77 mg/dL (0.67-1.17); Magnesium 2.6 mg/dL (1.9-2.7); Potassium 5.3 mmol/L (3.5-5.0); eGFR CKD-EPI 36.3 (>60)
[2024-03-12 06:14] LABS: Mean Platelet Volume 9.9 fL (7.5-11.2); Platelet Count 69 10^3/uL (150-450)
[2024-03-12 07:17] LABS: ABS Lymphocytes 0.3 10^3/uL (1.0-4.8); ABS Monocytes 0.8 10^3/uL (0.0-1.1); ABS Neutrophils 6.3 10^3/uL (1.5-7.6); ABS Nucleated RBC 0.07 10^3/ul; Acanthocytes 2+; Anisocytosis 2+; Lymphocyte % 4.4 %
[2024-03-12] MEDS: Ondansetron ODT 4 mg TAB 4 MG TAB SL PRN (11:14)
[2024-03-12 16:07] VITALS: BP 106/51
[2024-03-13] MEDS: Atropine 1% (ORAL/SL) 15 ML BTL SL PRN (15:38)
[2024-03-13] MEDS ORDERED: LORazepam 2 mg VIAL 1 ml IV PUSH PRN (17:31)
[2024-03-13] MEDS ORDERED: Lorazepam PYXIS KEY PRN (17:31)
[2024-03-13] MEDS: LORazepam 2 mg VIAL 1 ml IV PUSH PRN (18:00)
[2024-03-13] MEDS: Morphine 10 MG/ML VIAL (1 mL) 100 MG in NS 0.9% 100 ml BAG 90 ML IV SCH (22:21)
== END 2024-03-14 00:03 | disposition expired | DRG 871 ==
LOC: ED 14:31 → EDHOLD 19:57 → ICU 23:28
PROVIDERS: ADMIT Internal Medicine; ATTEND Internal Medicine Pulmonary Disease